=== PATIENT | male | born 1995 | race Caucasian/White ===

== ENCOUNTER 2023-05-25 23:42 | Emergency (ER) | payer OTHER, SELFPAY ==
--- NOTE | ~2023-05-25 | CT_ITS ---
CT Facial Bones and Cervical Spine Clinical Indication: Injury Technique: Contiguous axial scans were obtained through the facial bones and cervical spine followed by coronal and sagittal reconstructions. Dose reduction technique was used on this scan by utilizing automated exposure control and iterative reconstruction technique. The dose-length product (DLP) was 370.47 mGy-cm. Findings: CT facial bones: There are probable minimally displaced bilateral nasal bone fractures, possibly helper/driver magnus given relative lack of soft tissue swelling. The visualized paranasal sinuses are clear. Intraorb ital soft tissues appear normal. CT cervical spine: No fractures or subluxation. Unremarkable visualized bony structures. The interv ertebral disc spaces are preserved. No prevertebral soft tissue swelling. Suggestion of [address] anterior to the left sternocleidomastoid muscle. Impression: Minimally displaced bilateral nasal bone fractures, possibly chronic given lack of soft tissue swelli ng. No fracture or subluxation of the cervical spine. Suggestion of a 2 cm mass just anterior to the left sternocleidomastoid muscle, unclear whether this is solid or cystic. Consider follow-up CT scan of the neck to further evaluate. Reviewed, dictated and finalized at location . Impression: Minimally displaced bilateral nasal bone fractures, possibly chronic given lack of soft tissue swelling. No fracture or subluxation of the cervical spine. Suggestion of a 2 cm mass just anterior to the left sternocleidomastoid muscle, unclear whether this is solid or cystic. Consider follow-up CT scan of the nec k to further evaluate.
--- NOTE | ~2023-05-25 | CT_ITS ---
Non-contrast Head CT History: Head injury Technique: Axial non-contrast imaging of the brain was performed. Dose reduction technique was used on this scan by utilizing automated exposure control and iterative reconstruction technique. The dose -length product (DLP) was 681.00 mGy-cm. Findings: There is no evidence of intracranial hemorrhage, mass lesion, or acute infarct. Brain par enchyma appears normal. The ventricles and subarachnoid spaces are normal in size. The calvarium ap pears normal. The visualized paranasal sinuses and mastoid air cells are clear. Probable left nasal bone fracture, age-indeterminate. Impression: No intracranial abnormality seen. Probable left nasal bone fracture, age-indeterminate. Reviewed, dictated and finalized at [facility]. Impression: No intracranial abnormality seen. Probable left nasal bone fracture, age-indeterminate.
[2023-05-25 23:46] VITALS: BP 122/70; PULSE 114; RESP 21; TEMP 36.8; O2SAT 97
[2023-05-26] VITALS (13 sets, daily range): BP systolic 101–131; BP diastolic 72–90; PULSE 117–156; RESP 14–22; O2SAT 98
--- NOTE | 2023-05-26 00:35 | ECG_ITS ---
Measurements Intervals [place] Rate: 114 P: 85 IA: 139 QRS: 90 QRSD: 89 T: 89 QT: 311 QTc: 429 Interpretive Statements SINUS TACHYCARDIA VOLTAGE CRITERIA FOR LVH, POSSIBLY NORMAL FOR AGE BORDERLINE ECG ABNORMAL RHYTHM ECG NO PREVIOUS ECG AVAILABLE FOR COMPARISON Electronically Signed On 05-26-2023 12:04:26 CDT by Prieto Hsu M.D.
--- NOTE | 2023-05-26 00:48 | ED.GENADULT ---
HPI - General Adult General Chief complaint: Alcohol <Hitesh Arreola MD - Last Filed: 05/26/23 08:56> Stated complaint: AMS, +ETOH <Hitesh Arreola MD - Last Filed: 05/26/23 08:56> Time Seen by Provider: 05/26/23 00:29 <Hitesh Arreola MD - Last Filed: 05/26/23 08:56> History of Present Illness HPI narrative: Patient 28-year-old gentleman who presents the emergency department with chief complaint of alcohol intoxication. Patient reports he has prior history of alcohol abuse just recently went through rehab and reports that for the last 24 hours he has been on a binge of drinking. Patient was brought in by EMS the patient currently denies suicidal or homicidal ideation. <Hitesh Arreola MD - Last Filed: 05/26/23 08:56> Related Data Allergies/adverse reactions: Allergies Allergy/AdvReac Type Severity Reaction Status Date / Time No Known Allergies Allergy Verified 05/25/23 23:58 <Hitesh Arreola MD - Last Filed: 05/26/23 08:56> Review of Systems Review of Systems: A 10 system review of systems was completed on the patient and is negative except for what is stated in the HPI. Nursing and ancillary documentation was reviewed. <Hitesh Arreola MD - Last Filed: 05/26/23 08:56> Exam Narrative: GENERAL: Appears to be acutely intoxicated, well-nourished, and in no acute distress. HEAD: Normocephalic, atraumatic. EYES: PERRLA and EOMI. ENT: Nares clear, no rhinorrhea or epistaxis. Mucous membranes moist. NECK: Supple. CHEST: Clear to auscultation. No respiratory distress. HEART: Regular rate and rhythm. No murmur heard. Normal peripheral pulses. ABDOMEN: Soft, nontender, nondistended, normal active bowel sounds. EXTREMITIES: Normal range of motion. No edema. SKIN: Warm, dry, no rash. NEURO: No focal deficits. Alert and oriented x3. PSYCH: Normal mood and affect denies suicidal or homicidal ideation. <Hitesh Arreola MD - Last Filed: 05/26/23 08:56> Course Reevaluation(s) Reevaluation #1: PAtient is clinically sober. He is able to ambulate with steady gait. He is alert and oriented x .4 He is asking to be discharge. <Pratibha Moss MD - Last Filed: 05/26/23 17:45> Date: 05/26/23 <Pratibha Moss MD - Last Filed: 05/26/23 17:45> Time: 12:17 <Pratibha Moss MD - Last Filed: 05/26/23 17:45> Vital Signs Vital signs: Vital Signs Temperature 98.3 F 05/25/23 23:46 Pulse Rate 114 H 05/25/23 23:46 Respiratory Rate 21 H 05/25/23 23:46 Blood Pressure 122/70 05/25/23 23:46 Pulse Oximetry 97 05/25/23 23:46 Oxygen Delivery Room Air 05/25/23 23:46 Temperature 98.3 F 05/25/23 23:46 Pulse Rate 123 H 05/26/23 03:45 Respiratory Rate 21 H 05/26/23 03:45 Blood Pressure 101/72 05/26/23 10:30 Pulse Oximetry 98 05/26/23 01:46 Oxygen Delivery Room Air 05/25/23 23:46 <Hitesh Arreola MD - Last Filed: 05/26/23 08:56> Vital Signs Temperature 98.3 F 05/25/23 23:46 Pulse Rate 114 H 05/25/23 23:46 Respiratory Rate 21 H 05/25/23 23:46 Blood Pressure 122/70 05/25/23 23:46 Pulse Oximetry 97 05/25/23 23:46 Oxygen Delivery Room Air 05/25/23 23:46 Temperature 98.3 F 05/25/23 23:46 Pulse Rate 123 H 05/26/23 03:45 Respiratory Rate 21 H 05/26/23 03:45 Blood Pressure 101/72 05/26/23 10:30 Pulse Oximetry 98 05/26/23 01:46 Oxygen Delivery Room Air 05/25/23 23:46 <Pratibha Moss MD - Last Filed: 05/26/23 17:45> Procedures Laceration Laceration 1: Date: 05/26/23 <Hitesh Arreola MD - Last Filed: 05/26/23 08:56> Time: 08:54 <Hitesh Arreola MD - Last Filed: 05/26/23 08:56> Site: face (Right eyebrow) <Hitesh Arreola MD - Last Filed: 05/26/23 08:56> Side (If applicable): right <Hitesh Arreola MD - Last Filed: 05/26/23 08
[2023-05-26] MEDS: SODIUM CHLORIDE 0.9% IV 1,000 ML 999 ML IV CONT (00:56)
[2023-05-26] MEDS: ONDANSETRON INJ 4 MG/2 ML VIAL IV PUSH (00:56)
[2023-05-26 01:11] LABS: Basophils Absolute Auto 0.1 K/mm3 (0.0-0.1); Basophils Percent Auto 1.2 % (0.2-1.2); Eosinophils Percent Auto 0.4 % (0-4.4); Hematocrit 42.2 % (42.0-52.0); Hemoglobin 14.5 g/dL (14.0-18.0); Immature Granulocyte Absolute 0.01 K/mm3 (0.00-0.031); Immature Granulocyte Percent A 0.1 % (0-0.5); Lymphocytes Absolute Auto 1.95 K/mm3 (0.9-3.2); Lymphocytes Percent Auto 26.2 % (18.3-44.2); Mean Corpuscular HGB Conc 34.4 g/dl (32-36); Mean Corpuscular Hemoglobin 30.9 pg (26-34); Mean Corpuscular Volume 89.8 fl (80-100); Mean Platelet Volume 9.4 fl (7.4-10.4); Monocytes Absolute Auto 0.6 K/mm3 (0.1-0.6); Monocytes Percent Auto 7.9 % (2.6-8.5); Neutrophils Absolute Auto 4.8 K/mm3 (1.3-6.7); Neutrophils Percent Auto 64.2 % (45.5-73.1); Platelet Count Result 240 k/mm3 (150-375); Red Cell Distribution Width 13.1 % (11.5-14.5); White Blood Count 7.4 K/mm3 (4.5-10.0)
[2023-05-26 01:31] LABS: Acetaminophen < 10 ug/mL (10-30); Alanine Aminotransferase 51 U/L (6-50); Albumin Level 4.6 g/dL (3.5-5.1); Alkaline Phosphatase 69 U/L (38-126); Anion Gap 15 mmol/L (8-16); Aspartate Amino Transferase 79 U/L (17-59); Bilirubin,Total 0.4 mg/dL (0.2-1.3); Blood Urea Nitrogen 13 mg/dL (9-20); Calcium 8.8 mg/dL (8.4-10.2); Carbon Dioxide 31 mmol/L (22-30); Chloride 100 mmol/L (98-107); Estimated CRCL calculation 94 ml/min; Estimated Glomerular Filt Rate > 60; Glucose 116 mg/dL (65-110); Potassium 3.6 mmol/L (3.4-5.0); Salicylate < 1.0 mg/dL (2-20); Sodium 146 mmol/L (137-145)
--- NOTE | 2023-05-26 01:39 | PC.NURSE ---
This RN walked into pts room. Pt resting on stretcher alert to verbal stimuli with new laceration to R eyebrow. Bed alarm intact. Blood noted on floor. LAVELLE Arreola notified.
[2023-05-26 01:58] LABS: Ethanol 471 mg/dL (<10)
[2023-05-26 02:01] LABS: Thyroid Stimulating Hormone 0.814 uIU/mL (0.465-4.680)
[2023-05-26] MEDS: THIAMINE 500 MG/NS 100 ML 500 MG/100 ML BAG 200 MG IVPB (02:03)
--- NOTE | 2023-05-26 02:26 | PC.NURSE ---
Pt moved to room 7, report given to Caren CAMPBELL.
--- NOTE | 2023-05-26 02:29 | PC.NURSE ---
This RN assumed care of patient. This RN took patient report from SHANNAN Sevilla.
[2023-05-26 02:43] LABS: Appearance Urine Clear (Clear); Bilirubin Urine Negative (Negative); Blood Urine Negative (Negative); Color Urine Yellow (Yellow); Glucose Urine UA Negative (Negative); Ketones Urine Negative (Negative); Leukocyte Esterase Ur Negative LEU/UL (Negative); Nitrate Urine Negative (Negative); Protein Urine Negative (Negative); Specific Grav Ur 1.009 (1.001-1.035); Urobilinogen Urine 0.2 mg/dL (<2.0); pH Urine 6.5 (5.0-9.0)
[2023-05-26 02:53] LABS: Add Urine Microscopic? NO
[2023-05-26] MEDS: LORazepam INJ (*CRX) 2 MG/ML VIAL IM (03:00)
[2023-05-26] MEDS: HALOPERIDOL LACTATE 5 MG/ML VIAL IM (03:00)
[2023-05-26 03:01] LABS: Barbiturate Screen Urine Negative (Negative); Benzodiazepines Screen Urine Negative (Negative)
[2023-05-26 03:09] LABS: Amphetamine Screen Urine Negative (Negative); Cannabinoid Screen Urine Positive (Negative); Cocaine Screen Urine Negative (Negative); Methadone Screen Urine Negative (Negative); Opiate Screen Urine Negative (Negative); Phencyclidine Screen Urine Negative (Negative)
--- NOTE | 2023-05-26 04:39 | PC.NURSE ---
Pt arrived back from CT scan. Pt began to rip off vital sign monitor and ripped out his IV. This RN along with multiple others encourage patient to back into bed. This RN initiated new IV access, 18 guage in the left forearm and reapplied vital machine leads to patient. Pt was explained the importance of staying in bed by this RN and other staff members. This Rn along with multiple other staff members, security, charge nurse, and EDP Dr. Arreola tried to encourage patient to stay in bed. Pt refused to listen and got out of bed several times stating he needs to drink water and he cant lay down . This RN reminded patient that he was not able to get out of bed due to high ETOH levels. After multiple failed attempts to keep patient in bed, pt then ran to the sink and began drinking water. THis RN along with several others got pt back into bed. EDP Dr. Arreola approved pt to drink water. This RN gave patient water. Pt then began to stay in bed.
--- NOTE | 2023-05-26 08:41 | PC.NURSE ---
Pt found standing up in the room urinating on the floor
--- NOTE | 2023-05-26 11:46 | PC.NURSE ---
Pt stated he needs to leave to go to a job interview at 1400. Pt was told he was unable to leave due to alcohol intoxication and not having a ride. Pt stated he would get an Uber home. MD aware and no new orders at this time.
== END 2023-05-26 12:37 | disposition home or self-care (01) ==
PROVIDERS: Emergency Provider Emergency Medicine
DX: S02.2XXA Fracture of nasal bones, initial encounter for closed fracture (principal); S01.111A Laceration without foreign body of right eyelid and periocular area, initial encounter; F10.120 Alcohol abuse with intoxication, uncomplicated; Y90.8 Blood alcohol level of 240 mg/100 ml or more; X58.XXXA Exposure to other specified factors, initial encounter
CPT/HCPCS: 12013; 36415; 70450; 70486; 72125; 80053; 80307; 81003; 84443; 85025; 93005; 96361; 96365; 96372; 96375; 99284; J1630; J2060; J2405; J3411; J7030

== ENCOUNTER 2023-05-29 05:23 | Emergency (ER) | payer OTHER, SELFPAY ==
[2023-05-29 05:29] VITALS: BP 125/95; PULSE 77; RESP 16; TEMP 36.6; O2SAT 100
--- NOTE | 2023-05-29 05:33 | ECG_ITS ---
Measurements Intervals [place] Rate: 91 P: 81 MA: 138 QRS: 87 QRSD: 98 T: 84 QT: 344 QTc: 425 Interpretive Statements SINUS RHYTHM BORDERLINE R WAVE PROGRESSION, ANTERIOR LEADS MINIMAL Q WAVES- INFERIOR LEADS BORDERLINE ECG COMPARED TO ECG 05/26/2023 00:47:11 SINUS RHYTHM NOW PRESENT Electronically Signed On 05-29-2023 6:53:51 CDT by Terence Stephens D.O.
--- NOTE | 2023-05-29 05:47 | ED.GENADULT ---
HPI - General Adult General Chief complaint: Alcohol Stated complaint: alcohol withdrawal Time Seen by Provider: 05/29/23 05:30 History of Present Illness HPI narrative: Patient 28-year-old gentleman who presents the emergency department with chief complaint of alcohol abuse. Patient reports he has history of alcoholism and reports that he has been heavily drinking the patient has been seen in the emergency department for alcohol intoxication has had a head injury recently and required laceration repair of his face. The patient states that today he has decided that he wants to stop drinking the patient reports that his last drink was around 10 PM last night and the patient states that he is afraid that he is going through alcohol withdrawal. Related Data Allergies Allergy/AdvReac Type Severity Reaction Status Date / Time No Known Allergies Allergy Verified 05/25/23 23:58 Review of Systems Review of Systems: A 10 system review of systems was completed on the patient and is negative except for what is stated in the HPI. Nursing and ancillary documentation was reviewed. Exam Narrative: GENERAL: Well-appearing, well-nourished, and in no acute distress. HEAD: Normocephalic, atraumatic. There is a healing laceration to the right eyebrow EYES: PERRLA and EOMI. ENT: Nares clear, no rhinorrhea or epistaxis. Mucous membranes moist. NECK: Supple. CHEST: Clear to auscultation. No respiratory distress. HEART: Regular rate and rhythm. No murmur heard. Normal peripheral pulses. ABDOMEN: Soft, nontender, nondistended, normal active bowel sounds. EXTREMITIES: Normal range of motion. No edema. SKIN: Warm, dry, no rash. NEURO: No focal deficits. Alert and oriented x3. Patient is not tremulous PSYCH: Normal mood and affect. Course Vital Signs Vital signs: Vital Signs Temperature 36.6 C 05/29/23 05:29 Pulse Rate 77 05/29/23 05:29 Respiratory Rate 16 05/29/23 05:29 Blood Pressure 125/95 H 05/29/23 05:29 Pulse Oximetry 100 05/29/23 05:29 Temperature 36.6 C 05/29/23 05:29 Pulse Rate 77 05/29/23 05:29 Respiratory Rate 16 05/29/23 05:29 Blood Pressure 125/95 H 05/29/23 05:29 Pulse Oximetry 100 05/29/23 05:29 Medical Decision Making [facility] Narrative Medical decision making narrative: Differential diagnosis includes alcohol intoxication, alcohol withdrawal Laboratory studies were obtained on the patient which showed normal CBC electrolytes were within normal limits liver enzymes were slightly elevated with an AST of 83 ALT of 53 bilirubin 0.7 urinalysis showed no evidence of UTI blood alcohol level was 387 Patient reports that he is feeling very anxious the patient was given a dose of hydroxyzine Patient will be monitored in the emergency department until he is clinically sober and at that point will be discharged to follow-up as an outpatient for alcohol treatment. Vital Signs Vital Signs: Vital Signs Temperature 36.6 C 05/29/23 05:29 Pulse Rate 77 05/29/23 05:29 Respiratory Rate 16 05/29/23 05:29 Blood Pressure 125/95 H 05/29/23 05:29 Pulse Oximetry 100 05/29/23 05:29 Temperature 36.6 C 05/29/23 05:29 Pulse Rate 77 05/29/23 05:29 Respiratory Rate 16 05/29/23 05:29 Blood Pressure 125/95 H 05/29/23 05:29 Pulse Oximetry 100 05/29/23 05:29 Lab Data 05/29/23 06:05 05/29/23 06:05 Labs: Lab Results 05/29/23 05/29/23 Range/Units 06:05 06:14 WBC 6.8 (4.5-10.0) K/mm3 RBC 4.73 (4.6-6.20) M/mm3 Hgb 14.4 (14.0-18.0) g/dL Hct 42.5 (42.0-52.0) % MCV 89.9 (80-100) fl MCH 30.4 (26-34) pg MCHC 33.9 (32-36) g/dl RDW 13.2 (11.5-14.5) % Plt Count 194 (150-375) k/mm3 MPV 9.7 (7.4-10.4) fl Immature Gran % (Auto) 0.3 (0-0.5) % Neut % (Auto) 60.5 (45.5-73.1) % Lymph % (Auto) 32.4 (18.3-44.2) % [place] % (Auto) 4.9 (2.6-8.5) % Eos % (Auto) 0.3 (0-4.4) % Baso %
[2023-05-29] MEDS: SODIUM CHLORIDE 0.9% IV 1,000 ML 999 ML IV CONT ×2 (06:02→06:37)
[2023-05-29] MEDS: THIAMINE 500 MG/NS 100 ML 500 MG/100 ML BAG 200 MG IVPB (06:02)
[2023-05-29 06:10] LABS: Basophils Absolute Auto 0.1 K/mm3 (0.0-0.1); Basophils Percent Auto 1.6 % (0.2-1.2); Eosinophils Percent Auto 0.3 % (0-4.4); Hematocrit 42.5 % (42.0-52.0); Hemoglobin 14.4 g/dL (14.0-18.0); Immature Granulocyte Absolute 0.02 K/mm3 (0.00-0.031); Immature Granulocyte Percent A 0.3 % (0-0.5); Lymphocytes Absolute Auto 2.19 K/mm3 (0.9-3.2); Lymphocytes Percent Auto 32.4 % (18.3-44.2); Mean Corpuscular HGB Conc 33.9 g/dl (32-36); Mean Corpuscular Hemoglobin 30.4 pg (26-34); Mean Corpuscular Volume 89.9 fl (80-100); Mean Platelet Volume 9.7 fl (7.4-10.4); Monocytes Absolute Auto 0.3 K/mm3 (0.1-0.6); Monocytes Percent Auto 4.9 % (2.6-8.5); Neutrophils Absolute Auto 4.1 K/mm3 (1.3-6.7); Neutrophils Percent Auto 60.5 % (45.5-73.1); Platelet Count Result 194 k/mm3 (150-375); Red Blood Count 4.73 M/mm3 (4.6-6.20); Red Cell Distribution Width 13.2 % (11.5-14.5); White Blood Count 6.8 K/mm3 (4.5-10.0)
[2023-05-29 06:21] LABS: Alanine Aminotransferase 53 U/L (6-50); Albumin Level 4.7 g/dL (3.5-5.1); Alkaline Phosphatase 76 U/L (38-126); Anion Gap 13 mmol/L (8-16); Aspartate Amino Transferase 83 U/L (17-59); Bilirubin,Total 0.7 mg/dL (0.2-1.3); Blood Urea Nitrogen 11 mg/dL (9-20); Calcium 8.6 mg/dL (8.4-10.2); Carbon Dioxide 29 mmol/L (22-30); Chloride 97 mmol/L (98-107); Estimated CRCL calculation 98 ml/min; Estimated Glomerular Filt Rate > 60; Glucose 97 mg/dL (65-110); Magnesium 2.2 mg/dL (1.6-2.3); Potassium 3.8 mmol/L (3.4-5.0); Sodium 139 mmol/L (137-145)
[2023-05-29 06:23] LABS: Appearance Urine Clear (Clear); Bilirubin Urine Negative (Negative); Blood Urine Negative (Negative); Color Urine Yellow (Yellow); Glucose Urine UA Negative (Negative); Ketones Urine Negative (Negative); Leukocyte Esterase Ur Negative LEU/UL (Negative); Nitrate Urine Negative (Negative); Protein Urine Negative (Negative); Specific Grav Ur 1.005 (1.001-1.035); Urobilinogen Urine 0.2 mg/dL (<2.0); pH Urine 7.5 (5.0-9.0)
[2023-05-29 06:33] LABS: Add Urine Microscopic? NO
[2023-05-29 06:37] LABS: Ethanol 387 mg/dL (<10)
[2023-05-29] MEDS: hydrOXYzine HCL 25 MG TABLET PO (06:39)
[2023-05-29 06:44] LABS: Amphetamine Screen Urine Negative (Negative); Barbiturate Screen Urine Negative (Negative); Benzodiazepines Screen Urine Negative (Negative); Cannabinoid Screen Urine Negative (Negative); Cocaine Screen Urine Negative (Negative); Methadone Screen Urine Negative (Negative); Opiate Screen Urine Negative (Negative); Phencyclidine Screen Urine Negative (Negative)
== END 2023-05-29 06:50 | disposition home or self-care (01) ==
PROVIDERS: Emergency Provider Emergency Medicine
DX: F10.229 Alcohol dependence with intoxication, unspecified (principal); Y90.8 Blood alcohol level of 240 mg/100 ml or more; R94.31 Abnormal electrocardiogram [ECG] [EKG]
CPT/HCPCS: 36415; 80053; 80307; 81003; 83735; 85025; 93005; 96365; 99284; A9270; J3411; J7030

== ENCOUNTER 2023-05-30 01:52 | Emergency (ER) | payer OTHER, SELFPAY ==
[2023-05-30 01:56] VITALS: BP 152/80; PULSE 88; RESP 14; TEMP 36.6; O2SAT 100
--- NOTE | 2023-05-30 03:57 | ED.GENADULT ---
HPI - General Adult General Chief complaint: Unspecified Stated complaint: stitches removal Time Seen by Provider: 05/30/23 02:56 History of Present Illness HPI narrative: This is a 28-year-old alcoholic presenting ED for questions about his sutures. Sutures were placed on 05/26. Patient was post the have his sutures removed in the next 2-3 days. The patient decided the remove them himself at home using scissors. He then became concerned because he was worried some of the sutures may still be imbedded. He called an ambulance and was brought to emergency room. Patient is a daily drinker but has not drinking today. No signs of withdrawal at this time. Related Data Allergies Allergy/AdvReac Type Severity Reaction Status Date / Time No Known Allergies Allergy Verified 05/25/23 23:58 [facility] Past Medical History Medical History ETOHism Exam Narrative: APPEARANCE: No apparent distress. No tremors Head: atraumatic. EYES: EOMI, NOSE: Atraumatic NECK: Trachea midline RESPIRATORY: No increased rate of breathing CARDIOVASCULAR: RRR, ABDOMINAL: Non-distended MUSCULOSKELETAl: No obvious deformities NEURO: Alert. Moving 4/4 extremities SKIN:: non gaping some a healed laceration over the right eyebrow. Several small suture tails sticking out the suture sites. PSYCHIATRIC: Normal affect Course Vital Signs Vital signs: Vital Signs Temperature 97.9 F 05/30/23 01:56 Pulse Rate 88 05/30/23 01:56 Respiratory Rate 14 05/30/23 01:56 Blood Pressure 152/80 H 05/30/23 01:56 Pulse Oximetry 100 05/30/23 01:56 Oxygen Delivery Room Air 05/30/23 01:56 Temperature 97.9 F 05/30/23 01:56 Pulse Rate 88 05/30/23 01:56 Respiratory Rate 14 05/30/23 01:56 Blood Pressure 152/80 H 05/30/23 01:56 Pulse Oximetry 100 05/30/23 01:56 Oxygen Delivery Room Air 05/30/23 01:56 Medical Decision Making [facility] Narrative Medical decision making narrative: -Course: 28-year-old presenting to the ED after taking his sutures out early. The wound itself is partially healed but not gaping. The remaining suture tails were removed using tweezers. Patient will be discharged. No evidence of withdrawal at this time. -DDX includes but is not limited to: Retained sutures -Co-morbidities complicating care: alcoholism -Shared decision making / Disposition: discharged Vital Signs Vital Signs: Vital Signs Temperature 97.9 F 05/30/23 01:56 Pulse Rate 88 05/30/23 01:56 Respiratory Rate 14 05/30/23 01:56 Blood Pressure 152/80 H 05/30/23 01:56 Pulse Oximetry 100 05/30/23 01:56 Oxygen Delivery Room Air 05/30/23 01:56 Temperature 97.9 F 05/30/23 01:56 Pulse Rate 88 05/30/23 01:56 Respiratory Rate 14 05/30/23 01:56 Blood Pressure 152/80 H 05/30/23 01:56 Pulse Oximetry 100 05/30/23 01:56 Oxygen Delivery Room Air 05/30/23 01:56 Discharge Plan Discharge Clinical Impression: Encounter for evaluation of wound Patient Disposition: Home, Self-Care Condition: Stable Instructions: Antibiotic Form, Care For Your Stitches (DC) Additional Instructions: Return if the wound becomes red, inflamed, painful or has purulent discharge. Follow-up/Referrals: UNKNOWN,DOCTOR [Primary Care Provider] -
[2023-05-30 04:14] VITALS: BP 139/86; PULSE 86; RESP 16; O2SAT 100
== END 2023-05-30 04:16 | disposition home or self-care (01) ==
PROVIDERS: Emergency Provider Emergency Medicine
DX: S01.111D Laceration without foreign body of right eyelid and periocular area, subsequent encounter (principal); X58.XXXD Exposure to other specified factors, subsequent encounter
CPT/HCPCS: 15853; 99281

== ENCOUNTER 2023-09-26 17:10 | Inpatient (IN) | payer OTHER, SELFPAY ==
[2023-09-26 17:10] VITALS: BP 126/84; PULSE 120; RESP 16; TEMP 37.2; O2SAT 98
--- NOTE | 2023-09-26 18:10 | ED.ALCOHOL ---
HPI - Alcohol General Chief Complaint: Alcohol Stated Complaint: ETOH Time Seen by Provider: 09/26/23 17:15 History of Present Illness HPI narrative: Patient is a 28-year-old male presenting with alcohol withdrawal. States that he has been drinking about a 5th of liquor per day for many months. States that when he stops drinking he starts to feel anxious so he usually goes advised more alcohol. States that he is tired of hurting his family and so he is looking for help. Currently complains of severe anxiety. Denies pain. No seizures. Related Data Home Medications Medication Instructions Recorded Confirmed No Home Medications 09/26/23 09/26/23 Allergies Allergy/AdvReac Type Severity Reaction Status Date / Time No Known Allergies Allergy Verified 09/26/23 17:17 Review of Systems Review of Systems: All systems reviewed & are unremarkable except as noted in HPI and below PMFSH Past Medical History Medical History ETOHism Family History Family History (Updated 09/26/23 @ 23:10 by Reena Astorga RN) Other No significant family history Social History Social History Smoking packs per day: 1 Smoking cigarettes per day: 20.0 Years smoked: 5 Smoking pack-years: 5.00 Smoking status: Heavy tobacco smoker Tobacco type: cigarettes Alcohol intake: current Substance use: former Other substance usage details: Fifth of vodka daily Last use: 09/25/23 Do You Feel Safe in your Home?: Yes Lack of Transportation: No Lack of Food: Never True Current Housing: I Have Housing Concerned About Future Housing: No Difficulty Paying Gas/Electric Bills: No Difficulty Paying for Meds: No Currently Unemployed: YES Education: High School Diploma/GED Difficulty w/ Childcare or Family Care: No Spiritual care concerns: No Exam Narrative: GENERAL: Anxious appearing, intermittently tearful, pleasant cooperative HEAD: Normocephalic, atraumatic. EYES: PERRLA and EOMI. ENT: Mucous membranes moist. no tongue fasciculations NECK: Supple. CHEST: Clear to auscultation. No respiratory distress. HEART: tachycardic, regular rhythm ABDOMEN: Soft, nontender, nondistended EXTREMITIES: Normal range of motion. mild tremulousness SKIN: Warm, dry, no rash. NEURO: No focal deficits. Alert and oriented x3. PSYCH: Normal mood and affect. Course Vital Signs Vital signs: Vital Signs Temperature 99.0 F 09/26/23 17:10 Pulse Rate 120 H 09/26/23 17:10 Respiratory Rate 16 09/26/23 17:10 Blood Pressure 126/84 09/26/23 17:10 Pulse Oximetry 98 09/26/23 17:10 Oxygen Delivery Room Air 09/26/23 17:10 Temperature 97.8 F 09/27/23 08:00 Pulse Rate 80 09/27/23 08:00 Respiratory Rate 18 09/27/23 08:00 Blood Pressure 137/83 09/27/23 08:00 Pulse Oximetry 100 09/27/23 08:00 Oxygen Delivery Room Air 09/27/23 08:00 MDM - Alcohol MDM Narrative Medical decision making narrative: 28-year-old male presenting for alcohol detox. Tachycardic on arrival, his vitals are within normal limits. Exam remarkable for the above. CIWA 6. Ativan and Librium have been ordered. Blood work with hypokalemia. ethanol was 260. Patient has received several L of fluids and multiple doses of Ativan. His heart rate remains in the 140s. Feel he would benefit from admission for observation, IV fluids, monitoring for withdrawal. He is agreeable with this plan. I spoke with the hospitalist has accepted him for admission. Differential Diagnosis Differential diagnosis: Likely hypomagnesemia, alcohol intoxication, alcohol ketoacidosis and alcohol withdrawal syndrome Medical Records Attestation: I reviewed the patient's medical records. Lab Data Attestation: I reviewed the patient's lab results. 09/27/23 03:48 09/27/23 03:48 Labs: Lab
[2023-09-26 18:36] LABS: Basophils Absolute Auto 0.1 K/mm3 (0.0-0.1); Basophils Percent Auto 0.8 % (0.2-1.2); Eosinophils Percent Auto 0.1 % (0-4.4); Hematocrit 47.5 % (42.0-52.0); Hemoglobin 16.2 g/dL (14.0-18.0); Immature Granulocyte Absolute 0.05 K/mm3 (0.00-0.031); Immature Granulocyte Percent A 0.4 % (0-0.5); Lymphocytes Absolute Auto 1.92 K/mm3 (0.9-3.2); Lymphocytes Percent Auto 16.2 % (18.3-44.2); Mean Corpuscular HGB Conc 34.1 g/dl (32-36); Mean Platelet Volume 9.1 fl (7.4-10.4); Monocytes Absolute Auto 0.5 K/mm3 (0.1-0.6); Monocytes Percent Auto 4.3 % (2.6-8.5); Neutrophils Absolute Auto 9.3 K/mm3 (1.3-6.7); Neutrophils Percent Auto 78.2 % (45.5-73.1); Platelet Count Result 270 k/mm3 (150-375); Red Blood Count 5.22 M/mm3 (4.6-6.20); Red Cell Distribution Width 12.3 % (11.5-14.5); White Blood Count 11.8 K/mm3 (4.5-10.0)
[2023-09-26] MEDS: SODIUM CHLORIDE 0.9% IV 1,000 ML 999 ML IV CONT ×2 (18:43→19:34)
[2023-09-26] MEDS: chlordiazePOXIDE (*CRX) 25 MG CAPSULE 50 MG PO (18:44)
[2023-09-26] MEDS: FOLIC ACID 1 MG/0.2 ML INJ IV PUSH (18:44)
[2023-09-26] MEDS: LORazepam INJ (*CRX) 2 MG/ML VIAL IV PUSH ×2 (18:44→21:01)
[2023-09-26 18:47] VITALS: BP 120/84; PULSE 106; RESP 16; O2SAT 100
[2023-09-26 18:54] LABS: Alanine Aminotransferase 34 U/L (6-50); Albumin Level 5.1 g/dL (3.5-5.1); Alkaline Phosphatase 66 U/L (38-126); Anion Gap 14 mmol/L (8-16); Aspartate Amino Transferase 44 U/L (17-59); Bilirubin,Total 0.4 mg/dL (0.2-1.3); Blood Urea Nitrogen 12 mg/dL (9-20); Calcium 9.4 mg/dL (8.4-10.2); Carbon Dioxide 35 mmol/L (22-30); Chloride 93 mmol/L (98-107); Estimated CRCL calculation 102 ml/min; Estimated Glomerular Filt Rate > 60; Glucose 119 mg/dL (65-110); Lipase 418 U/L (23-300); Potassium 3.5 mmol/L (3.4-5.0); Sodium 142 mmol/L (137-145)
[2023-09-26 18:55] LABS: Ethanol 260 mg/dL (<10)
--- NOTE | 2023-09-26 19:08 | PCCCNOTE ---
CC received referral for alcohol resources for patient. CC met with patient bedside, patient is alert and oriented at this time. CC gave patient substance abuse resources and left a referral for [facility] with [facility]. Patient also given [facility]'s business card to reach out to him as well. CC will continue to follow for any needs that may arise.
[2023-09-26 20:17] LABS: Appearance Urine Clear (Clear); Bacteria Urine None Seen /hpf; Bilirubin Urine Negative (Negative); Blood Urine Negative (Negative); Color Urine Yellow (Yellow); Glucose Urine UA Negative (Negative); Ketones Urine Trace mg/dL (Negative); Leukocyte Esterase Ur Negative LEU/UL (Negative); Nitrate Urine Negative (Negative); Non Pathogenic Casts 0-2; Protein Urine Trace mg/dL (Negative); RBC Urine 0-2 /hpf (0-2); Specific Grav Ur 1.019 (1.001-1.035); Squamous Epithelial Cell Urine None seen /hpf (Few); WBC Urine 0-5 /hpf
[2023-09-26 20:21] LABS: Add Urine Microscopic? YES
[2023-09-26 20:31] LABS: Amphetamine Screen Urine Negative (Negative); Barbiturate Screen Urine Negative (Negative); Benzodiazepines Screen Urine Negative (Negative); Cannabinoid Screen Urine Negative (Negative); Cocaine Screen Urine Negative (Negative); Methadone Screen Urine Negative (Negative); Opiate Screen Urine Negative (Negative); Phencyclidine Screen Urine Negative (Negative)
[2023-09-26 20:57] VITALS: PULSE 126; RESP 16; O2SAT 100
[2023-09-26] MEDS: THIAMINE 500 MG/NS 100 ML 500 MG/100 ML BAG 200 MG IVPB (22:06)
[2023-09-26] MEDS: MAGNESIUM SULF 2 GM/WATER 50ML 2 GM/50 ML BAG IVPB (22:06)
--- NOTE | 2023-09-26 22:25 | PM.IMHP ---
H&P: HPI History of Present Illness Date/Time: 09/26/23 22:25 Chief Complaint: anxiety Narrative: 28M w/ PMH alcohol abuse. He drinks about a 5th of liquor per day for many months. His last drink was the night prior to admission. He laid around hoping to feel better as he wants to quit but became increasingly anxious. He denies other symptoms other than being hungry, requesting sandwich and chips. ED course revealed ETOH level of 260 which is lower than previous (471). He received librium 50mg, ativan 2mg IV x2, folici acid, thiamine, and 2L normal saline bolus. Afterwards, he reports feeling better, only slightly anxious. His HR remains high in 130's. Sinus tachycardia. EKG pending. Review of Systems Review of Systems: All systems reviewed & are unremarkable except as noted in HPI and below (HPI) [facility] Past Medical History Medical History ETOHism Meds Home Medications and Allergies Allergies Allergy/AdvReac Type Severity Reaction Status Date / Time No Known Allergies Allergy Verified 09/26/23 17:17 Vital Signs Vital Signs - 24 hr 09/26/23 17:10 09/26/23 18:47 09/26/23 20:57 Temperature 99.0 F Pulse Rate 120 H 106 H 126 H Respiratory Rate 16 16 16 Blood Pressure 126/84 120/84 Pulse Oximetry 98 100 100 Oxygen Delivery Room Air Exam Const: General: comfortable and no acute distress Eyes: Pupils: Equal, round and reactive pupils present Neck: Neck: supple Resp: Effort & Inspection: normal respiratory effort Auscultation: clear to auscultation bilaterally, no crackles, no rales and no rhonchi Cardio: Rate: tachycardic Rhythm: regular rhythm Heart sounds: no gallops, no murmurs and no rubs GI: GI Palp: Yes Soft to palpation and No Tenderness to palpation present (GI) Neuro: Speech: normal speech Motor exam (neuro): 5/5 motor strength present throughout Extrem: General: no edema H&P: Results Labs Labs: Short CBC 09/26/23 Range/Units 18:24 WBC 11.8 H (4.5-10.0) K/mm3 Hgb 16.2 (14.0-18.0) g/dL Hct 47.5 (42.0-52.0) % Plt Count 270 (150-375) k/mm3 BMP 09/26/23 18:24 Sodium 142 Potassium 3.5 Chloride 93 L Carbon Dioxide 35 H BUN 12 Creatinine 0.90 Glucose 119 H Calcium 9.4 Liver Function 09/26/23 Range/Units 18:24 Total Bilirubin 0.4 (0.2-1.3) mg/dL AST 44 (17-59) U/L ALT 34 (6-50) U/L Alkaline Phosphatase 66 (38-126) U/L Albumin 5.1 (3.5-5.1) g/dL Urine 09/26/23 Range/Units 20:04 Urine Color Yellow (Yellow) Urine Appearance Clear (Clear) Urine pH 8.0 (5.0-9.0) Ur Specific [place] 1.019 (1.001-1.035) Urine Protein Trace (Negative) mg/dL Urine Glucose (UA) Negative (Negative) mg/dL Assessment and Plan Assessment and plan (1) ETOHism: Code(s): F10.20 - Alcohol dependence, uncomplicated Status: Acute (2) Alcohol withdrawal: Code(s): F10.939 - Alcohol use, unspecified with withdrawal, unspecified Status: Acute (3) Sinus tachycardia: Code(s): R00.0 - Tachycardia, unspecified Status: Acute Plan 28M w/ PMH alcohol abuse and tobacco abuse. He drinks about a 5th of liquor per day for many months. His last drink was the night prior to admission. He laid around hoping to feel better as he wants to quit but became increasingly anxious. He denies other symptoms other than being hungry, requesting sandwich and chips. ED course revealed ETOH level of 260 which is lower than previous (471). He received Librium 50mg, Ativan 2mg IV x2, folic acid, thiamine, and 2L normal saline bolus. Afterwards, he reports feeling better, only slightly anxious. His HR remains high in 130's. Sinus tachycardia. EKG pending. Admitted on 09/26/23 He is being admitted to IMU w/ tele for alcohol withdrawal and persistent sinus tachycardia. EKG is pending. CIWA initiated with scheduled Librium and banana bag daily. He has
--- NOTE | 2023-09-26 22:46 | ADMGEN ---
This patient, Rodrigo Cage, was admitted to IMU Room 203-01. Patient/family oriented to hospital policies and general routines including ID bracelet, bed and alarms, visiting hours, pain management, procedures, bathroom and other care routines, personal items, smoking policy, room service/diet, and visiting hours. Information on how to activate the Rapid Response Team has been discussed. Patient/Family are encouraged to report perceived risks to care and to ask questions if they do not understand what they are told or what they should do.
[2023-09-26 23:14] VITALS: PULSE 132
[2023-09-26 23:53] VITALS: BP 129/69; PULSE 134; RESP 18; TEMP 36.6; O2SAT 99
[2023-09-26 23:59] LABS: Glucose Point of Care 153 mg/dl (65-105)
[2023-09-27] VITALS: PULSE 128; PULSE 132; O2SAT 99
[2023-09-27 02:00] VITALS: PULSE 123
[2023-09-27 04:00] VITALS: PULSE 94; O2SAT 98
[2023-09-27 04:09] VITALS: BP 112/69; PULSE 101; RESP 19; TEMP 36.4; O2SAT 98
[2023-09-27 04:53] LABS: Basophils Absolute Auto 0.1 K/mm3 (0.0-0.1); Basophils Percent Auto 0.9 % (0.2-1.2); Eosinophils Absolute Auto 0.1 K/mm3 (0-0.3); Eosinophils Percent Auto 1.2 % (0-4.4); Hematocrit 37.5 % (42.0-52.0); Hemoglobin 12.7 g/dL (14.0-18.0); Immature Granulocyte Absolute 0.03 K/mm3 (0.00-0.031); Immature Granulocyte Percent A 0.3 % (0-0.5); Lymphocytes Absolute Auto 2.65 K/mm3 (0.9-3.2); Lymphocytes Percent Auto 26.9 % (18.3-44.2); Mean Corpuscular HGB Conc 33.9 g/dl (32-36); Mean Corpuscular Hemoglobin 31.1 pg (26-34); Mean Corpuscular Volume 91.9 fl (80-100); Mean Platelet Volume 9.6 fl (7.4-10.4); Monocytes Percent Auto 10.1 % (2.6-8.5); Neutrophils Percent Auto 60.6 % (45.5-73.1); Platelet Count Result 191 k/mm3 (150-375); Red Blood Count 4.08 M/mm3 (4.6-6.20); Red Cell Distribution Width 12.2 % (11.5-14.5); White Blood Count 9.9 K/mm3 (4.5-10.0)
[2023-09-27 05:17] LABS: Alanine Aminotransferase 25 U/L (6-50); Albumin Level 3.7 g/dL (3.5-5.1); Alkaline Phosphatase 51 U/L (38-126); Anion Gap 7 mmol/L (8-16); Aspartate Amino Transferase 30 U/L (17-59); Bilirubin,Total 0.5 mg/dL (0.2-1.3); Blood Urea Nitrogen 16 mg/dL (9-20); Calcium 8.4 mg/dL (8.4-10.2); Carbon Dioxide 35 mmol/L (22-30); Chloride 97 mmol/L (98-107); Estimated CRCL calculation 118 ml/min; Estimated Glomerular Filt Rate > 60; Glucose 92 mg/dL (65-110); Magnesium 2.5 mg/dL (1.6-2.3); Sodium 139 mmol/L (137-145)
[2023-09-27 05:59] LABS: Glucose Point of Care 125 mg/dl (65-105)
[2023-09-27 06:00] VITALS: PULSE 95
[2023-09-27] MEDS: chlordiazePOXIDE (*CRX) 25 MG CAPSULE PO ×2 (06:17)
[2023-09-27 08:00] VITALS: BP 137/83; PULSE 80; PULSE 89; RESP 18; TEMP 36.6; O2SAT 100
[2023-09-27] MEDS: ENOXAPARIN 40 MG/0.4 ML SYRINGE SUB-Q (08:42)
[2023-09-27] MEDS: POTASSIUM CHLORIDE 20 MEQ ER TABLET 40 MEQ PO (08:43)
--- NOTE | 2023-09-27 09:04 | ECG_ITS ---
Measurements Intervals Leiter Rate: 78 P: 76 DE: 146 QRS: 83 QRSD: 106 T: 73 QT: 375 QTc: 429 Interpretive Statements SINUS RHYTHM NONSPECIFIC ST ELEVATION [0.05+ mV ST ELEVATION] COMPARED TO ECG 05/29/2023 05:42:15 NO SIGNIFICANT CHANGES Electronically Signed On 09-27-2023 15:12:38 REGISTERED NURSE FLOAT POOL by Latanya Neumann M.D.
--- NOTE | 2023-09-27 09:13 | PM.IMPN ---
Progress Note: A&P Assessment and Plan (1) Alcohol withdrawal: Code(s): F10.939 - Alcohol use, unspecified with withdrawal, unspecified Status: Acute Assessment and Plan: Continue Librium and p.r.n. Ativan Continue thiamine and folic acid 09/27/2023 discussed with patient that it is not safe to discharge today (2) Sinus tachycardia: Code(s): R00.0 - Tachycardia, unspecified Status: Acute Assessment and Plan: Resolved 09/27/2023 normal sinus rhythm at 82 (3) Hypokalemia: Code(s): E87.6 - Hypokalemia Status: Acute Assessment and Plan: Due to alcohol and IV fluid 09/27/2023 p.o. potassium and follow-up lab ordered Subjective Date/time seen: 09/27/23 09:13 Interval history: Feels much better. Denied pain. Tolerated breakfast. Asking to be discharged because ?I have to get some money together to pay the rent due 09/28/2023. Denied chest pain or shortness of breath. Denied GI or issues. No abnormal bleeding. Review of Systems Review of Systems: All systems reviewed & are unremarkable except as noted in HPI and below Exam Narrative: HEENT: PERRL, sclerae nonicteric, pharyngeal mucosa pink and intact NECK: No JVD, adenopathy, or thyromegaly CHEST: Clear to auscultation. Normal effort. HEART: NL S1/S2, regular, no murmur ABDOMEN: BS+, soft, nontender, no mass, no bruits EXTREMITIES: No cyanosis, edema, or clubbing NEUROLOGIC: CN intact and symmetric to inspection. MUSCULOSKELETAL: Tone and strength symmetric. PSYCH: Alert. Oriented to person, place, and time. Objective Data Vital Signs Vital Signs: Vital Signs - 24 hr 09/26/23 17:10 09/26/23 18:47 09/26/23 20:57 Temperature 99.0 F Pulse Rate 120 H 106 H 126 H Pulse Rate [Monitor] Respiratory Rate 16 16 16 Blood Pressure 126/84 120/84 Pulse Oximetry 98 100 100 Oxygen Delivery Room Air 09/26/23 23:14 09/26/23 23:53 09/27/23 00:00 Temperature 98 F Pulse Rate 134 H Pulse Rate [Monitor] 132 H 128 H Respiratory Rate 18 Blood Pressure 129/69 Pulse Oximetry 99 Oxygen Delivery 12/31/23 00:00 09/27/23 00:00 09/27/23 02:00 Temperature Pulse Rate 132 H 123 H Pulse Rate [Monitor] Respiratory Rate Blood Pressure Pulse Oximetry 99 Oxygen Delivery Room Air 09/27/23 04:09 09/27/23 04:00 09/27/23 04:00 Temperature 97.5 F L Pulse Rate 101 H 94 Pulse Rate [Monitor] 94 Respiratory Rate 19 Blood Pressure 112/69 Pulse Oximetry 98 Oxygen Delivery 09/27/23 04:00 09/27/23 06:00 09/27/23 08:00 Temperature 97.8 F Pulse Rate 95 89 Pulse Rate [Monitor] Respiratory Rate 18 Blood Pressure 137/83 Pulse Oximetry 98 100 Oxygen Delivery Room Air Intake/Output Intake/Output: Intake & Output 09/24/23 09/25/23 09/26/23 09/27/23 23:59 23:59 23:59 23:59 Intake Total 2100 710 Balance 2100 710 Meds/Results Medications: Active Medications Generic Name Dose Route Start Last Admin Trade Name Freq PRN Reason Stop Dose Admin Chlordiazepoxide HCl 25 mg 09/27/23 00:00 09/27/23 06:17 Chlordiazepoxide (*Crx) 25 Mg Capsule PO 25 mg Q6HR ELAINA Administration Enoxaparin Sodium 40 mg 09/27/23 09:00 09/27/23 08:42 Enoxaparin 40 Mg/0.4 Ml Syringe SUB-Q 40 mg DAILY ELAINA Administration Lorazepam 2 mg 09/26/23 22:07 Lorazepam Inj (*Crx) 2 Mg/Ml Vial IV PUSH Q2H PRN CIWA > 15 Potassium Chloride 40 meq 09/27/23 12:00 Potassium Chloride 20 Meq Er Tablet PO 09/27/23 12:01 ONCE ONE Labs Labs: Laboratory Results - last 24 hr 09/26/23 09/26/23 09/26/23 18:24 20:04 23:55 WBC 11.8 H RBC 5.22 Hgb 16.2 Hct 47.5 MCV 91.0 MCH 31.0 MCHC 34.1 RDW 12.3 Plt Count 270 MPV 9.1 Immature Gran % (Auto) 0.4 Neut % (Auto) 78.2 H Lymph % (Auto) 16.2 L [place] % (Auto) 4.3 Eos % (Auto) 0.1 Baso % (Auto) 0.8 Lymph # (Auto)
--- NOTE | 2023-09-27 17:02 | PM.DS ---
DS: Admitting Diagnosis Discharge Date 09/27/23 Admitting Diagnosis Acute alcohol intoxication DS: Discharge Diagnosis Discharge Diagnosis (1) Alcohol withdrawal: Code(s): F10.939 - Alcohol use, unspecified with withdrawal, unspecified Status: Acute Assessment and Plan: Continue Librium and p.r.n. Ativan Continue thiamine and folic acid 09/27/2023 discussed with patient that it is not safe to discharge today (2) Sinus tachycardia: Code(s): R00.0 - Tachycardia, unspecified Status: Acute Assessment and Plan: Resolved 09/27/2023 normal sinus rhythm at 82 (3) Hypokalemia: Code(s): E87.6 - Hypokalemia Status: Acute Assessment and Plan: Due to alcohol and IV fluid 09/27/2023 p.o. potassium and follow-up lab ordered DS: Summary Hospital Course Reason for hospitalization: Acute alcohol intoxication Hospital Course: This 28-year-old gentleman presented to the emergency department being acutely intoxicated with alcohol. He was admitted or IV fluids time on multivitamins and folic acid and detox. However following morning on 09/27/2023 he felt well and wished to leave the hospital. He was advised that leaving the hospital was on cedeño is he was not fully detoxed from alcohol. He was advised that he was likely to start drinking again to control his symptoms. He chose to leave the hospital against medical advice. Status at Discharge Functional status at discharge: independent ambulation Overall status at discharge: patient is back to baseline Time Spent with Patient Time attestation: Total time spent providing and/or coordinating discharge services: Exam Narrative: HEENT: PERRL, sclerae nonicteric, pharyngeal mucosa pink and intact NECK: No JVD, adenopathy, or thyromegaly CHEST: Clear to auscultation. Normal effort. HEART: NL S1/S2, regular, no murmur ABDOMEN: BS+, soft, nontender, no mass, no bruits EXTREMITIES: No cyanosis, edema, or clubbing NEUROLOGIC: CN intact and symmetric to inspection. MUSCULOSKELETAL: Tone and strength symmetric. PSYCH: Alert. Oriented to person, place, and time. DS: Data Data Completed and Pending Labs on day of discharge: Labs from last 24 hours 09/27/23 09/27/23 09/26/23 05:54 03:48 23:55 WBC 9.9 RBC 4.08 L Hgb 12.7 L D Hct 37.5 L MCV 91.9 MCH 31.1 MCHC 33.9 RDW 12.2 Plt Count 191 MPV 9.6 Immature Gran % (Auto) 0.3 Neut % (Auto) 60.6 Lymph % (Auto) 26.9 [place] % (Auto) 10.1 H Eos % (Auto) 1.2 Baso % (Auto) 0.9 Lymph # (Auto) 2.65 [place] # (Auto) 1.0 H Eos # (Auto) 0.1 Baso # (Auto) 0.1 Abs Immat Gran (auto) 0.03 Absolute Neuts (auto) 6.0 Absolute Nucleated RBC 0.0 Nucleated RBC % 0.0 Sodium 139 Potassium 3.0 L Chloride 97 L Carbon Dioxide 35 H Anion Gap 7 L BUN 16 Creatinine 0.80 Estim Creat Clear Calc 118 Estimated GFR > 60 Glucose 92 POC Capillary Glucose 125 H 153 H Calcium 8.4 Magnesium 2.5 H Total Bilirubin 0.5 AST 30 ALT 25 Alkaline Phosphatase 51 Total Protein 6.0 L Albumin 3.7 Lipase Urine Color Urine Appearance Urine pH Ur Specific [place] Urine Protein Urine Glucose (UA) Urine Ketones Ur Blood (Man) Urine Nitrate Urine Bilirubin Urine Urobilinogen Leukocyte Esterase Rfl Urine RBC Urine WBC Ur Squamous Epith Cells Urine Bacteria Urine Casts Urine Opiates Screen Urine Methadone Screen Ur Barbiturates Screen Ur Phencyclidine Scrn Ur Amphetamine Screen U Benzodiazepines Scrn Urine Cocaine Screen U Cannabinoids Screen Ethyl Alcohol 09/26/23 09/26/23 20:04 18:24 WBC 11.8 H RBC 5.22 Hgb 16.2 Hct 47.5 MCV 91.0 MCH 31.0 MCHC 34.1 RDW 12.3 Plt Count 270 MPV 9.1 Immature Gran % (Auto) 0.4 Neut % (Auto) 78.2 H Lymph % (Auto) 16.2 L Mo
== END 2023-09-27 09:55 | disposition left against medical advice (07) | DRG 770 ==
LOC: ANHED 18:07 → ANHIMU 09-27 00:16
PROVIDERS: Admitting Provider General Practice; Emergency Provider Emergency Medicine; Visit Provider Internal Medicine
DX: F10.239 Alcohol dependence with withdrawal, unspecified (principal); F10.229 Alcohol dependence with intoxication, unspecified; E87.29 Other acidosis; E87.6 Hypokalemia; F41.9 Anxiety disorder, unspecified; R00.0 Tachycardia, unspecified; F17.210 Nicotine dependence, cigarettes, uncomplicated
CPT/HCPCS: 36415; 80053; 80307; 81001; 82948; 83690; 83735; 85025; 93005; 96361; 96375; 96376; 99285; A9270; J1650; J2060; J3411; J3475; J7030; J7042

== ENCOUNTER 2024-01-14 07:06 | Observation (INO) | payer OTHER, SELFPAY ==
[2024-01-14] VITALS (8 sets, daily range): BP systolic 100–122; BP diastolic 58–78; PULSE 77–115; RESP 12–21; TEMP 36.4–37.1; O2SAT 97–100
--- NOTE | ~2024-01-14 | CT_ITS ---
EXAMINATION: CT BRAIN W/O DATE: 01/14/2024 08:02 INDICATION: Altered mental status TECHNIQUE: Computed tomography (CT) of the head was performed without intravenous contrast. The dose- length product was 983.67 mGy-cm. Automated exposure control and iterative reconstruction technique w ere employed. COMPARISON: CT dated 05/26/2023 FINDINGS: Normal brain parenchymal volume for age. Normal burton-white differentiation. No acute intrac ranial hemorrhage, infarction, mass or mass effect. No ventriculomegaly or midline shift. Midline sagittal images demonstrate a normal corpus callosum, c raniovertebral junction and sella turcica. Basilar cisterns are patent. Paranasal sinuses and mastoids are pneumatized. No depressed skull fractures. IMPRESSION: 1. No acute intracranial abnormality. Reviewed, dictated and finalized at location A.
--- NOTE | ~2024-01-14 | CT_ITS ---
EXAMINATION: CT cervical spine wo con DATE: 01/14/2024 08:02 INDICATION: Altered mental status. Neck pain. TECHNIQUE: Computed tomography (CT) of the cervical spine was performed without intravenous contrast. The dose-length product was 432 mGy-cm. Automated exposure control and iterative reconstruction tech [employer] were employed. COMPARISON: CT dated 05/26/2023 FINDINGS: Vertebral body heights are maintained. Craniovertebral junction is normal. No evidence for perched facet. No evidence for spondylolisthesis. Odontoid process is normal. There is dextroscoliosi s. There is emphysema of the lung apices. No significant paraspinal soft tissue abnormality. IMPRESSION: 1. No acute abnormality of the cervical spine. Reviewed, dictated and finalized at location A.
--- NOTE | 2024-01-14 07:18 | ED.AMS ---
HPI - Altered Mental Status General Chief Complaint: Altered Mental Status Stated Complaint: AMS , ETOH Time Seen by Provider: 01/14/24 07:10 History of Present Illness HPI narrative: 29-year-old male presents to the emergency department from police by EMS for evaluation of altered mental status. Patient was initially placed in police custody due to public disturbance. When the patient arrived to the police station he was less responsive. EMS was called. Upon arrival emergency department patient is somnolent but is protecting his airway. Patient is saturating well 2 L of oxygen. Patient was hypotensive for EMS but did respond to fluids. Related Data Home Medications Medication Instructions Recorded Confirmed No Home Medications 09/26/23 09/26/23 Allergies Allergy/AdvReac Type Severity Reaction Status Date / Time No Known Allergies Allergy Verified 09/26/23 17:17 Review of Systems Review of Systems: All systems reviewed & are unremarkable except as noted in HPI and below PMFSH Past Medical History Medical History ETOHism Family History Family History (Updated 09/26/23 @ 23:10 by Reena Astorga RN) Other No significant family history Social History Social History Smoking packs per day: 1 Smoking cigarettes per day: 20.0 Years smoked: 5 Smoking pack-years: 5.00 Smoking status: Heavy tobacco smoker Tobacco type: cigarettes Alcohol intake: current Substance use: former Other substance usage details: Fifth of vodka daily Last use: 09/25/23 Do You Feel Safe in your Home?: Yes Lack of Transportation: No Lack of Food: Never True Current Housing: I Have Housing Concerned About Future Housing: No Difficulty Paying Gas/Electric Bills: No Difficulty Paying for Meds: No Currently Unemployed: YES Education: High School Diploma/GED Difficulty w/ Childcare or Family Care: No Spiritual care concerns: No Exam Narrative: APPEARANCE: Somnolent and intoxicated HEAD: normocephalic, atraumatic. EYES: PERRLA/EOMI, conjunctivae clear. NOSE: Normal no drainage EARS:TMS clear with good light reflex. THROAT: Pharynx clear, no exudate. NECK: Supple. No adenopathy, no masses. RESPIRATORY: Airway patent, respirations nonlabored. Clear to auscultation bilaterally, no rales, rhonchi, wheezing. CARDIOVASCULAR: Regular rate and rhythm without murmurs rubs or gallops. ABDOMINAL: Soft, nontender, nondistended, normal bowel sounds MUSCULOSKELETAL: Moves all extremities. Strength/ROM intact, No edema, No calf tenderness. NEURO: Alert. Cranial nerves II through XII intact. Grossly intact Course Vital Signs Vital signs: Vital Signs Temperature 97.6 F 01/14/24 07:05 Pulse Rate 91 01/14/24 07:05 Respiratory Rate 21 H 01/14/24 07:05 Blood Pressure 122/58 L 01/14/24 07:05 Pulse Oximetry 97 01/14/24 07:05 Oxygen Delivery Room Air 01/14/24 07:05 Temperature 98.7 F 01/14/24 10:30 Pulse Rate 97 01/14/24 12:00 Respiratory Rate 20 01/14/24 12:00 Blood Pressure 104/67 01/14/24 12:00 Pulse Oximetry 98 01/14/24 12:00 Oxygen Delivery Room Air 01/14/24 12:00 MDM - Altered Mental Status MDM Narrative Medical decision making narrative: 29-year-old male present to the emergency department for evaluation of altered mental status. Patient was found to be heavily intoxicated. Patient's blood alcohol was 512. At initial evaluation patient was obtunded but during 2 hours of observation in the emergency department patient is more alert and does have a gag reflex. Patient is still very somnolent but is currently protecting his airway does not need to be intubated. Case was discussed with the operations associate patient will be admitted to the ICU. Case was also discussed with the hospitalist. Patient is afebrile with no leukocytosis and
[2024-01-14 07:47] LABS: Appearance Urine Clear (Clear); Basophils Absolute Auto 0.1 K/mm3 (0.0-0.1); Basophils Percent Auto 1.2 % (0.2-1.2); Bilirubin Urine Negative (Negative); Blood Urine Negative (Negative); Color Urine Yellow (Yellow); Eosinophils Absolute Auto 0.1 K/mm3 (0-0.3); Eosinophils Percent Auto 1.3 % (0-4.4); Glucose Urine UA Negative (Negative); Hematocrit 44.5 % (42.0-52.0); Hemoglobin 14.7 g/dL (14.0-18.0); Immature Granulocyte Absolute 0.04 K/mm3 (0.00-0.031); Immature Granulocyte Percent A 0.5 % (0-0.5); Ketones Urine Negative (Negative); Leukocyte Esterase Ur Negative LEU/UL (Negative); Lymphocytes Absolute Auto 2.56 K/mm3 (0.9-3.2); Lymphocytes Percent Auto 33.6 % (18.3-44.2); Mean Corpuscular Hemoglobin 30.8 pg (26-34); Mean Corpuscular Volume 93.1 fl (80-100); Mean Platelet Volume 9.6 fl (7.4-10.4); Monocytes Absolute Auto 0.6 K/mm3 (0.1-0.6); Monocytes Percent Auto 7.6 % (2.6-8.5); Neutrophils Absolute Auto 4.3 K/mm3 (1.3-6.7); Neutrophils Percent Auto 55.8 % (45.5-73.1); Nitrate Urine Negative (Negative); Platelet Count Result 208 k/mm3 (150-375); Protein Urine Negative (Negative); Red Blood Count 4.78 M/mm3 (4.6-6.20); Red Cell Distribution Width 12.3 % (11.5-14.5); Specific Grav Ur 1.009 (1.001-1.035); Urobilinogen Urine 0.2 mg/dL (<2.0); White Blood Count 7.6 K/mm3 (4.5-10.0); pH Urine 6.5 (5.0-9.0)
[2024-01-14 07:56] LABS: Add Urine Microscopic? NO; Lactic Acid Reflex 1.9 mmol/L (0.7-2.0)
[2024-01-14 07:56] LABS: Alanine Aminotransferase 23 U/L (6-50); Albumin Level 4.2 g/dL (3.5-5.1); Alkaline Phosphatase 49 U/L (38-126); Anion Gap 10 mmol/L (4-12); Aspartate Amino Transferase 24 U/L (17-59); Bilirubin,Total 0.3 mg/dL (0.2-1.3); Blood Urea Nitrogen 12 mg/dL (9-20); Calcium 7.7 mg/dL (8.4-10.2); Carbon Dioxide 25 mmol/L (22-30); Chloride 110 mmol/L (98-107); Estimated CRCL calculation 119 ml/min; Estimated Glomerular Filt Rate > 60; Glucose 99 mg/dL (65-110); Potassium 3.6 mmol/L (3.4-5.0); Sodium 145 mmol/L (137-145)
[2024-01-14] MEDS: SODIUM CHLORIDE 0.9% IV 1,000 ML 150 ML IV CONT (08:12)
[2024-01-14 08:49] LABS: Ethanol 512 mg/dL (<10)
[2024-01-14 09:47] LABS: Amphetamine Screen Urine Negative (Negative); Barbiturate Screen Urine Negative (Negative); Benzodiazepines Screen Urine Negative (Negative); Cannabinoid Screen Urine Negative (Negative); Cocaine Screen Urine Negative (Negative); Methadone Screen Urine Negative (Negative); Opiate Screen Urine Negative (Negative); Phencyclidine Screen Urine Negative (Negative)
[2024-01-14] MEDS: LACTATED RINGERS 1,000 ML 999 ML IV CONT (10:45)
--- NOTE | 2024-01-14 10:45 | WPDCNINT ---
Assessment and Plan Assessment and plan (1) Alcoholic intoxication: Code(s): F10.929 - Alcohol use, unspecified with intoxication, unspecified Status: Acute Assessment and Plan: Patient presented with being belligerent at a public place, was picked up by police, taken to the police station where he was less responsive, EMS was called and patient was brought to the [place] ER on 01/14/2024 -in the ER patient was obtunded but protecting his airway, later on patient became a little agitated and was placed in restraints. He was intermittently somnolent, agitated with laughing and crying intermittently. -patient has received 3 L IV fluid bolus -continue maintenance IV fluids -continue to monitor -started on folic acid and thiamine -patient's alcohol levels of 512 on this admission (2) Altered mental status: Code(s): R41.82 - Altered mental status, unspecified Status: Acute Assessment and Plan: Likely secondary to intoxication -continue to monitor -patient has been more awake since he arrived to the ER (3) ETOHism: Code(s): F10.20 - Alcohol dependence, uncomplicated Status: Acute Assessment and Plan: Patient has a history of alcoholism, was admitted to the hospital in August of 2023 for alcohol withdrawal and at that time he used to drink a 5th of liquor per day -will watch for alcohol withdrawal Plan DVT prophylaxis: Lovenox Stress ulcer prophylaxis: Not indicated Nutrition: NPO for now Code Status: Full code Critical Care Time Spent: 46 minutes Due to a high probability of clinically significant, life threatening deterioration, the patient required my highest level of preparedness to intervene emergently and I personally spent this critical care time directly and personally managing the patient. This critical care time included obtaining a history; examining the patient; pulse oximetry; ordering and review of studies; arranging urgent treatment with development of a management plan; evaluation of patient's response to treatment; frequent reassessment; and discussions with other providers. It was exclusive of separately billable procedures and treating other patients and teaching time. Please see Assessment and Plan section and the rest of the note for further information on patient assessment and treatment This dictation may have been done utilizing a voice recognition system. Attempts have been made to correct errors. However, there may be uncorrected grammatical, spelling, and recognitions errors present. Youth Leader Consult Note Consult date: 01/14/24 Reason for consult: Alcohol intoxication HPI: Rodrigo Cage is a 29 year old male with past medical history of alcohol alcohol abuse/intoxication drinks about a 5th of liquor per day presented to the ED from the police station where he was arrested for public disturbance. And at the police station patient was less responsive so EMS was called and transferred to the ER for further workup. In the ER patient's mental status was waxing and waning, he was protecting his airway, but was somnolent at times and agitated at other times. Patient was placed in restraints and given 1 L IV fluid bolus and transferred to ICU for further management. Pt seen and examined in the ICU upon arrival. Pt is awake, is intoxicated, awake. receiving 3rd liter of fluid bolus. Hemodynamically stable, good urine output, afebrile. Denies any pain or SOB, denies nausea or vomiting. Patient otherwise not able to answer many questions this time or provide any history Review of Systems Review of Systems: All systems reviewed & are unremarkable except as noted in HPI and below PMFSH Past Medical History Medical History ETOHism Family History Family History (Updated 09/26/23 @ 23:10 by Reena Astorga RN) Other No significant family history Social History Social History (Reviewed
--- NOTE | 2024-01-14 10:58 | ADMGEN ---
This patient, Rodrigo Cage, was admitted to Intensive Care Unit-3. Patient/family oriented to hospital policies and general routines including ID bracelet, bed and alarms, visiting hours, pain management, procedures, bathroom and other care routines, personal items, smoking policy, room service/diet, and visiting hours. Information on how to activate the Rapid Response Team has been discussed. Patient/Family are encouraged to report perceived risks to care and to ask questions if they do not understand what they are told or what they should do. Patient intoxicated,unable to verbalize his current location. Alert to self and current President.
[2024-01-14] MEDS: SODIUM CHLORIDE 0.9% IV 1,000 ML 125 ML IV CONT (11:27)
[2024-01-14] MEDS: THIAMINE HCL 200 MG/2 ML VIAL 100 MG IV PUSH (12:08)
[2024-01-14] MEDS: FOLIC ACID 1 MG/0.2 ML INJ IV PUSH (12:09)
--- NOTE | 2024-01-14 13:30 | PC.NURSE ---
Updated patient on plan of care and reason for admission. Patient angry and yelling. Restraints still in place.
--- NOTE | 2024-01-14 13:56 | PC.NURSE ---
Dr. Mar, Dr Franks at bedside. Patient requesting to leave AMA.
--- NOTE | 2024-01-14 14:17 | PM.SD2 ---
Same Day Admit/Disch: HPI History of Present Illness Chief complaint: alcohol intoxication Narrative: Rodrigo Cage is a 29 year old male admitted with high ethanol levels. as per ED note - Patient was initially placed in police custody due to public disturbance.? When the patient arrived to the police station he was less responsive.? EMS was called.? Upon arrival emergency department patient is somnolent but is protecting his airway. Pt was admitted to ICU, but pt appears more awake now wanting to leave AMA screaming and yelling to go home. PMFSH Past Medical History Medical History ETOHism Family History Family History Other No significant family history Social History Social History Smoking packs per day: 1 Smoking cigarettes per day: 20.0 Years smoked: 5 Smoking pack-years: 5.00 Smoking status: Heavy tobacco smoker Tobacco type: cigarettes Alcohol intake: current Substance use: former Other substance usage details: Fifth of vodka daily Last use: 09/25/23 Do You Feel Safe in your Home?: Yes Lack of Transportation: No Lack of Food: Never True Current Housing: I Have Housing Concerned About Future Housing: No Difficulty Paying Gas/Electric Bills: No Difficulty Paying for Meds: No Currently Unemployed: YES Education: High School Diploma/GED Difficulty w/ Childcare or Family Care: No Spiritual care concerns: No Same Day Admit/Disch: Med Pre-admit Medications Home Medications Medication Instructions Recorded Confirmed Type No Home Medications 09/26/23 09/26/23 History Review of Systems Review of Systems Sleepiness Otherwise no positives for 12 point systems of review Exam Narrative: General: Young gentleman, intoxicated, awake screaming to go home in ICU HEENT:? Pupils equal and reactive, sclera is clear Neck:? Supple Respiratory:? Clear to auscultation bilaterally, adequate air entry, no wheezing Cardiac:? S1-S2 normal, tachycardia Abdomen:? Soft, nontender, nondistended, normoactive bowel sounds Extremities:? No edema, palpable pedal pulses Neuro:? Patient intoxicated, awake, able to answer few questions but unable to give any history, moves all extremities spontaneous Skin:? Warm and dry DS: Data Data Completed and Pending Labs on day of discharge: Labs from last 24 hours 01/14/24 01/14/24 07:37 07:36 WBC 7.6 RBC 4.78 Hgb 14.7 Hct 44.5 MCV 93.1 MCH 30.8 MCHC 33.0 RDW 12.3 Plt Count 208 MPV 9.6 Immature Gran % (Auto) 0.5 Neut % (Auto) 55.8 Lymph % (Auto) 33.6 [place] % (Auto) 7.6 Eos % (Auto) 1.3 Baso % (Auto) 1.2 Lymph # (Auto) 2.56 [place] # (Auto) 0.6 Eos # (Auto) 0.1 Baso # (Auto) 0.1 Abs Immat Gran (auto) 0.04 H Absolute Neuts (auto) 4.3 Absolute Nucleated RBC 0.000 Nucleated RBC % 0.0 Sodium 145 Potassium 3.6 Chloride 110 H Carbon Dioxide 25 Anion Gap 10 BUN 12 Creatinine 0.70 Estim Creat Clear Calc 119 Estimated GFR > 60 Glucose 99 Lactic Acid 1.9 Calcium 7.7 L Total Bilirubin 0.3 AST 24 ALT 23 Alkaline Phosphatase 49 Total Protein 7.0 Albumin 4.2 Urine Color Yellow Urine Appearance Clear Urine pH 6.5 Ur Specific [place] 1.009 Urine Protein Negative Urine Glucose (UA) Negative Urine Ketones Negative Ur Blood (Man) Negative Urine Nitrate Negative Urine Bilirubin Negative Urine Urobilinogen 0.2 Leukocyte Esterase Rfl Negative Urine Opiates Screen Negative Urine Methadone Screen Negative Ur Barbiturates Screen Negative Ur Phencyclidine Scrn Negative Ur Amphetamine Screen Negative U Benzodiazepines Scrn Negative Urine Cocaine Screen Negative U Cannabinoids Screen Negative Ethyl Alcohol 512 H* DS: Summary H
== END 2024-01-14 14:29 | disposition left against medical advice (07) ==
LOC: ANHED 09:11 → ANHICU 09:58
PROVIDERS: Admitting Provider Family Medicine; Emergency Provider Emergency Medicine; Visit Provider Family Medicine
DX: F10.229 Alcohol dependence with intoxication, unspecified (principal); Y90.8 Blood alcohol level of 240 mg/100 ml or more; R41.82 Altered mental status, unspecified; F17.210 Nicotine dependence, cigarettes, uncomplicated; Z53.29 Procedure and treatment not carried out because of patient's decision for other reasons
CPT/HCPCS: 36415; 70450; 72125; 80053; 80307; 81003; 83605; 85025; 96361; 96374; 96375; 99285; G0378; J3411; J7030; J7120

== ENCOUNTER 2024-02-26 23:43 | Emergency (ER) | payer OTHER, SELFPAY ==
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
[2024-02-26 23:45] VITALS: BP 128/72; PULSE 88; RESP 15; TEMP 36.8; O2SAT 100
[2024-02-26 23:57] VITALS: BP 128/72; PULSE 73; RESP 16; O2SAT 100
[2024-02-27] MEDS: IBUPROFEN 600 MG TABLET PO (00:27)
--- NOTE | 2024-02-27 00:33 | ED.GENADULT ---
HPI - General Adult General Chief complaint: Extremity Injury, Lower Stated complaint: ankle pain Time Seen by Provider: 02/26/24 23:51 Source: patient and EMS Mode of arrival: EMS Limitations: no limitations History of Present Illness HPI narrative: This is a 29-year-old male who presents to the ED via EMS from [facility] for chief complaint of right ankle injury that occurred this evening. Patient states that he was playing basketball and suffered an inversion injury to the right ankle. Does not remember feeling or hearing any pop. He does state that it felt like the ankle bent pretty far. Denies numbness, weakness or any further sites of pain or injury. Related Data Home Medications Medication Instructions Recorded Confirmed No Home Medications 09/26/23 09/26/23 Allergies Allergy/AdvReac Type Severity Reaction Status Date / Time No Known Allergies Allergy Verified 09/26/23 17:17 Review of Systems Review of Systems: All systems as dictated in HPI PMFSH Past Medical History Medical History ETOHism Family History Family History Other No significant family history Social History Social History Smoking packs per day: 1 Smoking cigarettes per day: 20.0 Years smoked: 5 Smoking pack-years: 5.00 Smoking status: Heavy tobacco smoker Tobacco type: cigarettes Alcohol intake: current Substance use: former Other substance usage details: Fifth of vodka daily Last use: 09/25/23 Do You Feel Safe in your Home?: Yes Lack of Transportation: No Lack of Food: Never True Current Housing: I Have Housing Concerned About Future Housing: No Difficulty Paying Gas/Electric Bills: No Difficulty Paying for Meds: No Currently Unemployed: YES Education: High School Diploma/GED Difficulty w/ Childcare or Family Care: No Spiritual care concerns: No Exam Narrative: GENERAL: Well-appearing, well-nourished, and in no acute distress. HEAD: Normocephalic, atraumatic. EYES: PERRLA and EOMI. ENT: Nares clear, no rhinorrhea or epistaxis. Mucous membranes moist. Oropharynx without tonsillar hypertrophy exudate or other lesions. NECK: Supple. No adenopathy or masses. CHEST: No respiratory distress. Clear to auscultation. No wheezes rales or rhonchi HEART: Regular rate and rhythm. No murmur heard. Normal peripheral pulses. ABDOMEN: Soft, nontender, nondistended, normal active bowel sounds. MSK: RLE: Mild right ankle soft tissue swelling. Range of motion reduced due to pain. Mild tenderness throughout the ankle joint. Neurovascularly intact distally. No deformity. No bruising. LLE: Benign SKIN: Warm, dry, no rash. NEURO: Alert and oriented x3. No focal deficits. PSYCH: Normal mood and affect. Course Vital Signs Vital signs: Vital Signs Temperature 98.3 F 02/26/24 23:45 Pulse Rate 88 02/26/24 23:45 Respiratory Rate 15 02/26/24 23:45 Blood Pressure 128/72 02/26/24 23:45 Pulse Oximetry 100 02/26/24 23:45 Oxygen Delivery Room Air 02/26/24 23:45 Temperature 98.3 F 02/26/24 23:45 Pulse Rate 73 02/26/24 23:57 Respiratory Rate 16 02/26/24 23:57 Blood Pressure 128/72 02/26/24 23:57 Pulse Oximetry 100 02/26/24 23:57 Oxygen Delivery Room Air 02/26/24 23:45 Medical Decision Making MDM Narrative Medical decision making narrative: This is a 29-year-old male who presents to the ED with chief blood right ankle injury. Vitals are normal. Exam remarkable for the above. X-ray show no acute fracture. Symptoms and presentation consistent with ankle sprain. He will be given Ross wrap and crutches here. Discharged stable condition back to [facility] Vital Signs Vital Signs: Vital Signs Temperature 98.3 F 02/26/24 23:45 Pulse Rate 88 02/26/24
[2024-02-27 01:09] VITALS: BP 116/70; PULSE 70; RESP 14; O2SAT 100
== END 2024-02-27 01:10 | disposition home or self-care (01) ==
PROVIDERS: Emergency Provider Physician Assistant; PCP Family Medicine
DX: S93.401A Sprain of unspecified ligament of right ankle, initial encounter (principal); S96.911A Strain of unspecified muscle and tendon at ankle and foot level, right foot, initial encounter; F10.20 Alcohol dependence, uncomplicated; F17.210 Nicotine dependence, cigarettes, uncomplicated; X50.9XXA Other and unspecified overexertion or strenuous movements or postures, initial encounter; Y93.67 Activity, basketball
CPT/HCPCS: 73610; 99283; A9270

== ENCOUNTER 2025-04-22 14:09 | Emergency (ER) | payer OTHER, SELFPAY ==
--- NOTE | ~2025-04-22 | CT_ITS ---
History: Fall PROCEDURE: CT cervical spine and facial bones without intravenous contrast. COMPARISON: 01/14/2024 TECHNIQUE: Multiple contiguous axial images of the cervical spine and facial bones were performed without the ad ministration of intravenous contrast. DLP: 350 mGy-cm FINDINGS: Straightening and slight reversal of the normal curvature of the cervical spine is identified, likely muscular in origin. No acute fractures are present within the cervical spine or the facial bones. Biapical scarring. Retention cyst within the left maxillary sinus. Remaining paranasal sinuses are unremarkable. The airway is patent. Impression: Straightening and slight reversal of the normal curvature of the cervical spine, likely muscular in o rigin. No acute fracture within the cervical spine or facial bones. Reviewed, dictated and finalized at location A. Impression: Straightening and slight reversal of the normal curvature of the cervical spine , likely muscular in origin. No acute fracture within the cervical spine or facial bones.
--- NOTE | ~2025-04-22 | CT_ITS ---
EXAMINATION: CT brain wo con DATE: 04/22/2025 15:03 INDICATION: ETOH, s/p fall . TECHNIQUE: Computed tomography (CT) of the head was performed without intravenous contrast. The mA wa s adjusted according to patient size. Iterative reconstruction technique was employed. The dose-lengt h product was 718.98 mGy-cm. COMPARISON: 01/14/2024. FINDINGS: No acute intracranial hemorrhage or extra-axial fluid collection. No hydrocephalus, mass, or herniation. No acute ischemic infarct. Unremarkable dural venous sinus attenuation. No acute osseous abnormality. Right maxillary retention cyst/polyp, aerated secretions in the right posterior ethmoid sinus, and no dular mucosal thickening in the posterior left ethmoid sinus and left sphenoid sinus, the remaining a erated spaces are clear. IMPRESSION: No acute intracranial process. Aerated secretions in the right posterior ethmoid sinus may represent acute sinusitis or minor mucosa l hemorrhage in the setting of trauma. Reviewed, dictated and finalized at location K. IMPRESSION: No acute intracranial process. Aerated secretions in the right posterior ethmoid sinus may represent acute sin usitis or minor mucosal hemorrhage in the setting of trauma.
[2025-04-22 14:13] VITALS: BP 130/88; PULSE 116; RESP 18; TEMP 36.6; O2SAT 97
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
--- OUTSIDE RECORDS SUMMARY | 2025-04-22 14:19 | XMS_ITS | Clinical Summary ---
Author Organization [facility] Address [address] [place] [address] Phone Care Team Providers Care Hydraulic Mechanic Name Role Phone Durga Darden MD Primary Care Provider [phone] Allergies No known active allergies Medications * This document contains information received from the source organization and may not represent a complete record from that organization. terbinafine (LamISIL) 250 MG TabletIndicatio ns:Toenail treatment-Funga l Take 250 mg by mouth daily. Indications: Toenail treatment-Fu ngal Active Active Problems Problem Noted Date Diagnosed Date Alcohol withdrawal 05/20/2024 Tobacco dependence 05/20/2024 Onychomycosis 05/20/2024 Family History Relation Name Status Comments Father Mother Tran Alive Social History Tobacco Use Types Packs/Day Years Used Date Smoking Tobacco: Never Smokeless Tobacco: Never Tobacco Cessation:Counseling Given: Not Answered Alcohol Use Standard Drinks/Week Comments Yes 0 (1 standard drink = 0.6 oz pur e alcohol) a fifth a day [facility] Utilities Answer Date Recorded In the past 12 months has [employer], gas, oil, or water [employer] threatened to shut off services in your home? No 05/20/2024 Social Connection and Isolation Panel Answer Date Recorded In a typical week, how many times do you talk on the phone with family, friends, or neighbors? More than three times a week 05/20/2024 How often do you get togethe r with friends or relatives? Twice a week 05/20/2024 How often do you attend chur ch or confucianist services? Never 05/20/2024 Do you belong to any clubs o r organizations such as evangelical groups, unions, fraternal or athletic groups, or school groups? No 05/20/2024 How often do you attend meet ings of the clubs or organizations you belong to? Never 05/20/2024 Are you , , di vorced, , never , or living with a partner? Never 05/20/2024 AUDIT-C Answer Date Recorded Q1: How often do you have a drink containing alcohol? 4 or more times a week 05/20/2024 Q2: How many drinks containi ng alcohol do you have on a typical day when you are drinking? 10 or more Q3: How often do you have si x or more drinks on one occasion? Daily or almost daily 05/20/2024 Overall Financial Resource Strain (CARDIA) Answe r Date Recorded How hard is it for you to pa y for the very basics like food, housing, medical care, and heating? Not hard at all 05/20/2024 [facility] - Occupational Stress Questionnaire Answer Date Recorded Do you feel stress - tense, restless, nervous, or anxious, or unable to sleep at night because your mind is troubled all the time - these days? Very much 05/20/2024 Exercise Vital Sign Answer Date Recorde d On average, how many days pe r week do you engage in moderate to strenuous exercise (like a brisk walk)? 3 days 05/20/2024 On average, how many minutes do you engage in exercise at this level? 60 min 05/20/2024 Hunger Vital Sign Answer Date Recorded Within the past 12 months, y ou worried that your food would run out before you got the money to buy more. Never true 05/20/20 24 Within the past 12 months, t he food you bought just didn't last and you didn't have money to get more. Never true 05/20/2024 PRAPARE - Transportation Answer Date Re corded In the past 12 months, has l ack of transportation kept you from medical appointments or from getting medications? No 04/29 In the past 12 months, has l ack of transportation kept you from meetings, work, or from getting things needed for daily living? No 05/20/2024 Housing Stability Vital Sign Answer Christos e Recorded In the last 12 months, was t here a time when you were not able to pay the mortgage or rent on time? No 05/20/2024 In the past 12 months, how m any times have you moved where you were living? 2 05/20/2024 At any time in the past 12 m [facility], were you homeless or living in a mcc (including now)? Yes 05/20/2024 Sexually Active Control Partners Comments Not Currently Female Sex and Gender Information Value Date Recorded Sex Assigned at Not on file Legal Sex Male 3:11 PM CDT Gender Identity Not on file Sexual Orientation Not on file Last Filed Vital Signs Vital Sign Reading Time Taken Comments Blood Pressure 98/71 05/26/2024 6:43 AM CDT Pulse 87 05/26/2024 6:43 AM CDT Temperature 37.1 C (98.7 F) 05/25/2024 6:28 PM CDT Respiratory Rate 16 05/26/2024 6:43 AM CDT Oxygen Saturation 100% 05/26/2024 6:43 AM CDT Inhaled Oxygen Concentration - - Weight 74.1 kg (163 lb 5.8 oz) 05/25/2024 6:28 P M CDT Height 177.8 cm (5' 10) 05/25/2024 6:28 PM CDT Body Mass Index 23.44 05/25/2024 6:28 PM CDT Plan of Treatment Health Maintenance Due Date Last Done Comments Hepatitis C Virus (HCV) Screening 1993 Human Papillomavirus (HPV) Immunization (1 - Male 3-dose series) 01/04/2008 Hepatitis B Immunization (1 of 3 - 19+ 3-dose series) 01/04/2012 Pneumococcal Immunization Combined (1 of 2 - PCV) 01/04/2012 SARS-COV-2 Immunization ( - season) 2024 Influenza Immunization (#1) 2025 Respiratory Syncytial Virus (RSV) Immunization (Adult) (1 - 1-dose 75+ series) 01/04/2068 TdaP Immunization Completed 03/24/2020, 03/27/2017 Meningococcal Immunization (ACWY) Aged Out No longer eligible b ased on patient's age to complete this topic Rotavirus Immunization Aged Out No lo nger eligible based on patient's age to complete this topic Medical Devices Implanted Type Area Sterile Technician Device Identifier Shelf Expiration Date Model / Serial / Lot Plate And Screws Insurance MEDICAID AETNA [facility] Advance Directives * Full Code (Latest Code Status on File) Date Activated Date Inactivated Comments 05/21/2024 1:41 AM 05/25/2024 12:19 PM CPR-Full Tr eatment: FULL ARREST: Attempt Resuscitation/CPR wit intubation and mechanical ventilation. PRE-ARREST: Use entire range of life support measures to stabilize the patient. Care Teams Hydraulic Mechanic Relationship Specialty Start Date End Date Durga Darden MD [address] [place] [address] [address] PCP - General Harness Cutter 05/19/24
--- OUTSIDE RECORDS SUMMARY | 2025-04-22 14:19 | XMS_ITS | Referral Summary ---
Author Organization [facility] Address [address] [place] [address] Care Team Providers Care Company Dancer Name Role Phone Durga Darden MD Primary Care Provider [phone] Encounters Date Type Department Care Team Description 02/10/2025 11:30 AM CDT Office Visit [facility] Primary Care at [address] [place] [phone] Britt Gautam, MONA Acute pain of left shoulder due to trauma (Primary Dx) from Last 3 Months Allergies No known active allergies Medications terbinafine [...] 09/01/2024 Assessment & Plan (09/01/2024 12:43 PM RAGMAN): Discussed lifestyle modifications, diet and exercise. Routine [...] Nasal saline spray (Simply saline, Little Remedies, [place], [place]) 2 second sprays or 2 squeezes into [...] 018 Assessment & Plan (09/01/2024 12:41 PM RAGMAN): Recent admission Most recent presentation consistent with [...] time Continue current regimen Alcohol abuse 05/20/2017 Immunizations Immunization Administration Dates Next Due DTaP 03/01/2018,03/27/2017 Influenza, Unspecified 02/10/2025(Deferr ed: Patient Refused),12/07/2022(Deferred: Patient Refused) Tdap 03/24/2020,03/27/2017 Social History Tobacco Use Types Packs/Day Years [...] on file Legal Sex Male 10:58 PM RAGMAN Gender Identity Not on file Sexual Orientation [...] 02/10/2025 11:17 AM CDT Plan of Treatment Not on file Procedures Procedure Name Priority Date/Time Associated Diagnosis Comments HEPATITIS C ANTIBODY Routine 09/01/2024 12:56 PM RAGMAN Need for hepatitis B screening test from Last 3 Months or Most Recently Relevant to Health Maintenance Results * Hepatitis C antibody Blood (09/01/2024 12:56 PM RAGMAN) Hep C Ab Nonreactive Nonreactive Comment: Interpretive [...] last revised on 2019. Testing performed by: [facility], [address] [place] [address], [place]., [address] Blood 09/01/2024 12:5 6 PM RAGMAN 09/01/2024 8:40 PM RAGMAN us Durga Darden MD LAB MICROBIOLOGY - GENERAL ORDER TONNY Final Result [facility] 1 [facility] [place] [address] from Last 3 Months or Most Recently Relevant to Health Maintenance Insurance [facility] Advance Directives For more information, please contact: [phone] * Full Code (Latest Code Status on File) Date Activated Date Inactivated Comments 03/02/2018 4:05 AM 03/03/2018 6:58 PM Care Teams Company Dancer Relationship Specialty Start Date End Date Durga Darden MD [address] [facility] [place] [id number] PCP - General Family Medicine 03/11/23
--- OUTSIDE RECORDS SUMMARY | 2025-04-22 14:19 | XMS_ITS | Patient Health Record ---
Author Organization [facility] Address [address] [place] [address] Care Team Providers Care Forklift Driver Name Role Phone Demi Mcmullen Primary Care Provider Demi Amaya Unavailable [phone] Allergies No Known Allergies Reason For Referral No Information Medications Medication SIG (Take, Route, Frequency, Duration) Notes Start Date End Date Status Multivitamin Adult - as directed Orally Active Librium 25 MG 1 capsule Orally Three times a day dosage pre CIWA score Not-Taking Terbinafine HCl 250 MG 1 tablet Orally Once a day Active carBAMazepine 200 MG 1 tablet Orally Twice a day; Duration: 30 day(s) Not-Taking hydrOXYzine HCl 25 MG 2 tablet as needed Orally every 4 hours Active Folic Acid 1 MG 1 tablet Orally Once a day; Duration: 30 day(s) Not-Taking Thiamine HCl 100 MG 1 tablet Orally Once a day; Duration: 30 day(s) Not-Taking Social History Tobacco Use: Social History Observation Description Date Details (start date - stop date) Never Smoker NA - NA Sex Assigned At : Social History Observation Description Sex Assigned At Male Dont use, Tobacco Use/Smoking Question Answer Notes Are you a current smoker How often do you smoke cigarettes? every day How many cigarettes a day do you smoke? 11-20 How soon after you wake up do you smoke your fir st cigarette? within 5 minutes PRAPARE Question Answer Notes Date Completed/Updated: 02/02/2024 What is your current housing situation? I do not have housing (staying with others, in a hotel, in a skilled nursing, living outside on the street, on a beach, or in a park) Are you worried about losing your housing? Yes What is the highest level of school that you have finished? High school diploma or GED What is your current work situation? Unemployed and seeking work In the past year, have you o r any family members you live with been unable to get any of the following when it was really needed? Check all that apply I do not have problems meeting my needs Has lack of transportation k ept you from medical appointments, meetings, work or from getting things needed for daily living? Yes, it has kept me from medical appointments or from getting my medications,Yes, it has kept me from non-medical meetings, appointments, work, or getting things needed for daily living How often do you see or talk to people that you care about and feel close to? (For example: talking to friends on the phone, visiting friends or family, going to congregation or club meetings) More than 5 times a week How stressed are you? Stress is when someone feels tense, nervous, anxious, or can\t sleep at night because their mind is troubled A little bit In the past year have you sp ent more than 2 nights in a row in a prison, custodial, correction center, or juvenile correctional facility? No Are you a refugee? No What country are you from? [place] Do you feel physically and e motionally safe where you currently live? No In the past year, have you b een afraid of your partner or ex-partner? No PRAPARE Score: 10 Tobacco Control (Standard) Question Answer Notes Tobacco use: Nonsmoker Problems Problem Type SNOMED Code ICD Code Onset Dates Problem Status W/U Status Risk Notes Problem Anxiety disorder (096308869) Anxiety disorder, unspecified (F41.9) Active confirmed Problem Alcohol use disorder, severe, dependence (F10.20) Active confirmed Encounters Encounter Location Date Provider Diagnosis [address] [place] [address] 04/28/2024 Demi Amaya Plan Of Treatment No Information Insurance Providers Payer Name Payer Address Payer Phone Subscriber Number Group Number Insured Name Patient Relationship to Insured Coverage Start Date Coverage End Date [employer] (O) [address] [place] [phone] [id number] Rodrigo Cage Self - patient is the insured 0 0 Medical (General) History Medical History History ICD Code Anxiety Depression Surgical History Surgery Date(Month/Year) repair broken arm 2006 Hospitalization History Reason Date(Month/Year) alcohol detox- [facility] 03/2020
--- NOTE | 2025-04-22 14:33 | ED.ALCOHOL ---
HPI - Alcohol General Chief Complaint: Alcohol <Rodrigo Menjivar APRN - Last Filed: 04/22/25 16:54> Stated Complaint: fall, ETOH <Rodrigo Menjivar APRN - Last Filed: 04/22/25 16:54> Time Seen by Provider: 04/22/25 14:09 <Rodrigo Menjivar APRN - Last Filed: 04/22/25 16:54> Source: patient, EMS and RN notes reviewed <Rodrigo Menjivar APRN - Last Filed: 04/22/25 16:54> Mode of arrival: EMS <Rodrigo Menjivar APRN - Last Filed: 04/22/25 16:54> Limitations: altered mental status and intoxication <Rodrigo Menjivar APRN - Last Filed: 04/22/25 16:54> History of Present Illness HPI narrative: 30 y/o WM to the ED via EMS w/ ETOH intoxication and s/p fall. Per EMS and RN, pt found in the grass by bystander, EMS/Police contacted. Pt brought to ED for further care. Unknown LOC, unknown level of fall. PLastic OJ bottle and broken vodka bottle found near the pt. Pt states drinking a pint of Vodka usually when he drinks, thinks he fell, but isn't sure where or when. Pt states he drinks 3-5 days a week. Denies sz or DTs when not drinking. Pt denies any pain at this time. When asked if he has anyone to pick him up he stated no. Denies CP/SOB, N/V/D, abd pain, neck pain, BRAVO, dizziness. <Rodrigo Menjivar APRN - Last Filed: 04/22/25 16:54> MD complaint: alcohol intoxication <Rodirgo Menjivar APRN - Last Filed: 04/22/25 16:54> Last drink: unknown <Rodrigo Menjivar APRN - Last Filed: 04/22/25 16:54> Chronic alcohol use: Yes <Rodrigo Menjivar APRN - Last Filed: 04/22/25 16:54> Previous visits for alcohol intoxication: Yes <Rodrigo Menjivar APRN - Last Filed: 04/22/25 16:54> Recent trauma: Yes <Rodrigo Menjivar APRN - Last Filed: 04/22/25 16:54> Associated symptoms: denies other symptoms <Rodrigo Menjivar APRN - Last Filed: 04/22/25 16:54> Treatments prior to arrival: none <Rodrigo Menjivar APRN - Last Filed: 04/22/25 16:54> Related Data Home Medications: Home Medications ?Medication ?Instructions ?Recorded ?Confirmed ?Last Taken ?Type No Home Medications 09/26/23 09/26/23 Unknown History <Rodrigo Menjivar APRN - Last Filed: 04/22/25 16:54> Allergies/Adverse Reactions: Allergies Allergy/AdvReac Type Severity Reaction Status Date / Time No Known Allergies Allergy Verified 04/22/25 14:19 <Rodrigo Menjivar APRN - Last Filed: 04/22/25 16:54> Review of Systems Review of Systems: CONSTITUTIONAL: Denies fever, chills, or sweats. EYES: Denies visual changes, redness, or discharge. ENT: Denies rhinorrhea, congestion, sore throat, or otalgia. CARDIOVASCULAR: Denies chest pain, palpitations, or edema. RESPIRATORY: Denies cough or dyspnea. GASTROINTESTINAL: Denies abdominal pain, nausea, vomiting, or diarrhea. GENITOURINARY: Denies dysuria or hematuria. SKIN: Denies rash or itching. MUSCULOSKELETAL: Denies back pain, joint pain, or myalgia. NEUROLOGIC: Denies headache, numbness, or weakness. PSYCHIATRIC: Denies anxiety or depression. <Rodrigo Menjivar APRN - Last Filed: 04/22/25 16:54> [facility] Past Medical History Medical History: Medical History ETOHism <Rodrigo Menjivar APRN - Last Filed: 04/22/25 16:54> Family History Family History: Family History Other No significant family history <Rodrigo Menjivar APRN - Last Filed: 04/22/25 16:54> Social History Social History: Social History Smoking packs per day: 1 Smoking cigarettes per day: 20.0 Years smoked: 5 Smoking pack-years: 5.00 Smoking status: Heavy tobacco smoker Tobacco type: cigarettes Alcohol intake: current Substance use: former Other substance usage details: Fifth of vodka daily Last use: 09/25/23 Do You Feel Safe in your Home?: Yes Lack of Transportation: No Lack of Food: Never True Current Housing: I Have Housing Concerned About Future Housing: No Difficulty Paying Gas/Electric Bills: No Difficulty Paying for Meds: No Currently Unemployed: YES Education: High School Diploma/GED Difficulty w/ Childcare or Family Care: No Spiritual care concerns: No <Rodrigo Menjivar APRN - Last Filed: 04/22/25 16:54> Exam Narrative: GENERAL: Visibly intoxicated, well-nourished, and in no acute distress. HEAD: Normocephalic, dried blood noted to upper and lower lips and 2 front teeth. No loose teeth noted, singular 0.5cm laceration to upper lip noted, bleeding controlled. EYES: PERRLA and EOMI. ENT: Nares clear, no rhinorrhea or epistaxis. Mucous membranes moist. NECK: Supple. CHEST: Clear to auscultation. No respiratory distress. HEART: Regular rate and rhythm. No murmur heard. Normal peripheral pulses. ABDOMEN: Soft, nontender, nondistended, normal active bowel sounds. EXTREMITIES: Normal range of motion. No edema. SKIN: Warm, dry, no rash. 1.5cm laceration to left hand w/ bandage in place per EMS. NEURO: No focal deficits. Alert and oriented x3. PSYCH: Normal mood and affect. <Rodrigo Menjivar APRN - Last Filed: 04/22/25 16:54> Course EXECUTIVE CYBER LEADER/PA Physician Supervision For this patient encounter, I reviewed the EXECUTIVE CYBER LEADER or PA documentation, treatment plan, and medical decision making; and I had [id number] time with this patient. <Imtiaz Cage MD - Last Filed: 04/22/25 17:29> Vital Signs Vital signs: Vital Signs Temperature 97.9 F 04/22/25 14:13 Pulse Rate 116 H 04/22/25 14:13 Respiratory Rate 18 04/22/25 14:13 Blood Pressure 130/88 04/22/25 14:13 Pulse Oximetry 97 04/22/25 14:13 Oxygen Delivery Room Air 04/22/25 14:13 Temperature 97.9 F 04/22/25 14:13 Pulse Rate 116 H 04/22/25 14:13 Respiratory Rate 18 04/22/25 14:13 Blood Pressure 130/88 04/22/25 14:13 Pulse Oximetry 97 04/22/25 14:13 Oxygen Delivery Room Air 04/22/25 14:13 <Rodrigo Menjivar APRN - Last Filed: 04/22/25 16:54> Vital Signs Temperature 97.9 F 04/22/25 14:13 Pulse Rate 116 H 04/22/25 14:13 Respiratory Rate 18 04/22/25 14:13 Blood Pressure 130/88 04/22/25 14:13 Pulse Oximetry 97 04/22/25 14:13 Oxygen Delivery Room Air 04/22/25 14:13 Temperature 97.9 F 04/22/25 14:13 Pulse Rate 116 H 04/22/25 14:13 Respiratory Rate 18 04/22/25 14:13 Blood Pressure 130/88 04/22/25 14:13 Pulse Oximetry 97 04/22/25 14:13 Oxygen Delivery Room Air 04/22/25 14:13 <Imtiaz Cage MD - Last Filed: 04/22/25 17:29> MDM - Alcohol MDM Narrative Medical decision making narrative: 30 y/o WM to the ED via EMS w/ ETOH intoxication and s/p fall. Per EMS and RN, pt found in the grass by bystander, EMS/Police contacted. Pt brought to ED for further care. Unknown LOC, unknown level of fall. PLastic OJ bottle and broken vodka bottle found near the pt. Pt states drinking a pint of Vodka usually when he drinks, thinks he fell, but isn't sure where or when. Pt states he drinks 3-5 days a week. Denies sz or DTs when not drinking. Pt denies any pain at this time. When asked if he has anyone to pick him up he stated no. Denies CP/SOB, N/V/D, abd pain, neck pain, BRAVO, dizziness. Labs be drawn. Patient will be given IV fluids and banana bag in the emergency room to assist with detox. Will administer antiemetics and benzos if required but at this time is not necessary. CT head face and neck all ordered to rule out any traumatic injury, due to fall and patient being a poor historian. Patient requesting but go home, explained that we would be unable to help him with that due to his intoxication. Asked if patient has someone to pick him up and he stated now. Explained to patient that labs and imaging would need to be obtained, once he was sober we would release him of his own recognizance. Patient set up becoming aggressive with staff, pulling his IV out. Patient requesting to leave. Explained to patient that due to intoxication we would need him to sober up further. ETOH level 419 her lab, CIWA 11. Patient calmed, called his friend [facility] stating that he will be coming to pick him up and assume care. Patient from [facility] arrived assumed care of the patient. Patient left with commissioned security officer. <Rodrigo Menjivar TEACHER EMOTIONALLY IMPAIRED - Last Filed: 04/22/25 16:54> Differential Diagnosis Differential diagnosis: Likely alcohol withdrawal delirium, alcohol intoxication and alcohol withdrawal syndrome <Rodrigo Menjivar TEACHER EMOTIONALLY IMPAIRED - Last Filed: 04/22/25 16:54> Medical Records Attestation: I reviewed the patient's medical records. <Rodrigo Menjivar APRN - Last Filed: 04/22/25 16:54> Lab Data Attestation: I reviewed the patient's lab results. <Rodrigo Menjivar, TEACHER EMOTIONALLY IMPAIRED - Last Filed: 04/22/25 16:54> Result diagrams: 04/22/25 15:11 04/22/25 15:11 <Rodrigo Menjivar TEACHER EMOTIONALLY IMPAIRED - Last Filed: 04/22/25 16:54> Labs: Lab Results 04/22/25 Range/Units 15:11 WBC 7.5 (4.5-10.0) K/mm3 RBC 4.77 (4.6-6.20) M/mm3 Hgb 14.9 (14.0-18.0) g/dL Hct 44.3 (42.0-52.0) % MCV 92.9 (80-100) fl MCH 31.2 (26-34) pg MCHC 33.6 (32-36) g/dl RDW 13.0 (11.5-14.5) % Plt Count 221 (150-375) k/mm3 MPV 9.6 (7.4-10.4) fl Immature Gran % (Auto) 0.4 (0-0.5) % Neut % (Auto) 53.4 (45.5-73.1) % Lymph % (Auto) 38.1 (18.3-44.2) % [place] % (Auto) 5.5 (2.6-8.5) % Eos % (Auto) 1.1 (0-4.4) % Baso % (Auto) 1.5 H (0.2-1.2) % Lymph # (Auto) 2.84 (0.9-3.2) K/mm3 [place] # (Auto) 0.4 (0.1-0.6) K/mm3 Eos # (Auto) 0.1 (0-0.3) K/mm3 Baso # (Auto) 0.1 (0.0-0.1) K/mm3 Abs Immat Gran (auto) 0.03 (0.00-0.031) K/mm3 Absolute Neuts (auto) 4.0 (1.3-6.7) K/mm3 Absolute Nucleated RBC 0.000 (0.0-0.012) K/mm3 Nucleated RBC % 0.0 (0.0-0.2) % Sodium 142 (137-145) mmol/L Potassium 4.1 (3.4-5.0) mmol/L Chloride 104 (98-107) mmol/L Carbon Dioxide 25 (22-30) mmol/L Anion Gap 13 H (4-12) mmol/L BUN 9 (9-20) mg/dL Creatinine 0.91 (0.7-1.3) mg/dL Estim Creat Clear Calc 93 ml/min Estimated GFR > 60 (59 - ) Glucose 93 (65-110) mg/dL Calcium 9.0 (8.4-10.2) mg/dL Total Bilirubin 0.3 (0.2-1.3) mg/dL AST 30 (17-59) U/L ALT 30 (6-50) U/L Alkaline Phosphatase 60 (38-126) U/L Total Protein 8.4 H (6.3-8.2) g/dL Albumin 4.9 (3.5-5.1) g/dL Ethyl Alcohol 418 H* (<10) mg/dL <Rodrigo Menjivar, TEACHER EMOTIONALLY IMPAIRED - Last Filed: 04/22/25 16:54> Lab Results 04/22/25 Range/Units 15:11 WBC 7.5 (4.5-10.0) K/mm3 RBC 4.77 (4.6-6.20) M/mm3 Hgb 14.9 (14.0-18.0) g/dL Hct 44.3 (42.0-52.0) % MCV 92.9 (80-100) fl MCH 31.2 (26-34) pg MCHC 33.6 (32-36) g/dl RDW 13.0 (11.5-14.5) % Plt Count 221 (150-375) k/mm3 MPV 9.6 (7.4-10.4) fl Immature Gran % (Auto) 0.4 (0-0.5) % Neut % (Auto) 53.4 (45.5-73.1) % Lymph % (Auto) 38.1 (18.3-44.2) % [place] % (Auto) 5.5 (2.6-8.5) % Eos % (Auto) 1.1 (0-4.4) % Baso % (Auto) 1.5 H (0.2-1.2) % Lymph # (Auto) 2.84 (0.9-3.2) K/mm3 [place] # (Auto) 0.4 (0.1-0.6) K/mm3 Eos # (Auto) 0.1 (0-0.3) K/mm3 Baso # (Auto) 0.1 (0.0-0.1) K/mm3 Abs Immat Gran (auto) 0.03 (0.00-0.031) K/mm3 Absolute Neuts (auto) 4.0 (1.3-6.7) K/mm3 Absolute Nucleated RBC 0.000 (0.0-0.012) K/mm3 Nucleated RBC % 0.0 (0.0-0.2) % Sodium 142 (137-145) mmol/L Potassium 4.1 (3.4-5.0) mmol/L Chloride 104 (98-107) mmol/L Carbon Dioxide 25 (22-30) mmol/L Anion Gap 13 H (4-12) mmol/L BUN 9 (9-20) mg/dL Creatinine 0.91 (0.7-1.3) mg/dL Estim Creat Clear Calc 93 ml/min Estimated GFR > 60 (59 - ) Glucose 93 (65-110) mg/dL Calcium 9.0 (8.4-10.2) mg/dL Total Bilirubin 0.3 (0.2-1.3) mg/dL AST 30 (17-59) U/L ALT 30 (6-50) U/L Alkaline Phosphatase 60 (38-126) U/L Total Protein 8.4 H (6.3-8.2) g/dL Albumin 4.9 (3.5-5.1) g/dL Ethyl Alcohol 418 H* (<10) mg/dL <Imtiaz Cage MD - Last Filed: 04/22/25 17:29> Imaging Data Radiologist's impression: ITS Impressions Head CT 04/22/25 15:03 IMPRESSION: No acute intracranial process. Aerated secretions in the right posterior ethmoid sinus may represent acute sinusitis or minor mucosal hemorrhage in the setting of trauma. Head/Cervical Spine/Facial Bones CT 04/22/25 15:24 Impression: Straightening and slight reversal of the normal curvature of the cervical spine, likely muscular in origin. No acute fracture within the cervical spine or facial bones. ITS Impressions Head CT 04/22/25 15:03 IMPRESSION: No acute intracranial process. Aerated secretions in the right posterior ethmoid sinus may represent acute sinusitis or minor mucosal hemorrhage in the setting of trauma. Head/Cervical Spine/Facial Bones CT 04/22/25 15:24 Impression: Straightening and slight reversal of the normal curvature of the cervical spine, likely muscular in origin. No acute fracture within the cervical spine or facial bones. <Rodrigo Menjivar, TEACHER EMOTIONALLY IMPAIRED - Last Filed: 04/22/25 16:54> ITS Impressions Head CT 04/22/25 15:03 IMPRESSION: No acute intracranial process. Aerated secretions in the right posterior ethmoid sinus may represent acute sinusitis or minor mucosal hemorrhage in the setting of trauma. Head/Cervical Spine/Facial Bones CT 04/22/25 15:24 Impression: Straightening and slight reversal of the normal curvature of the cervical spine, likely muscular in origin. No acute fracture within the cervical spine or facial bones. <Imtiaz Cage MD - Last Filed: 04/22/25 17:29> Discharge Plan Discharge Clinical Impression: Alcoholic intoxication Qualifiers: Complication of substance-induced condition: uncomplicated Qualified Code(s): F10.920 - Alcohol use, unspecified with intoxication, uncomplicated <Rodrigo Menjivar APRN - Last Filed: 04/22/25 16:54> Patient Disposition: Home <Rodrigo Menjivar APRN - Last Filed: 04/22/25 16:54> Condition: Stable <Rodrigo Menjivar APRN - Last Filed: 04/22/25 16:54> Instructions: Antibiotic Form, Alcohol Intoxication (ED), Abuse of Alcohol (ED) <Rodrigo Menjivar APRN - Last Filed: 04/22/25 16:54> Additional Instructions: Please return to the ER with any worsening symptoms. ?Follow-up with primary care provider as soon as possible. ?Take all medications as prescribed, including regularly scheduled medications. <Rodrigo Menjivar APRN - Last Filed: 04/22/25 16:54> Patient Language: Hebrew <Rodrigo Menjivar APRN - Last Filed: 04/22/25 16:54> Prescriptions: No Action No Home Medications <Rodrigo Menjivar APRN - Last Filed: 04/22/25 16:54> Follow-up/Referrals: Stacie Hale DO [Primary Care Provider] - <Rodrigo Menjivar APRN - Last Filed: 04/22/25 16:54>
[2025-04-22] MEDS: SODIUM CHLORIDE 0.9% IV 1,000 ML 999 ML IV CONT (15:09)
[2025-04-22 15:17] LABS: Hematocrit 44.3 % (42.0-52.0); Hemoglobin 14.9 g/dL (14.0-18.0); Immature Granulocyte Percent A 0.4 % (0-0.5); Lymphocytes Absolute Auto 2.84 K/mm3 (0.9-3.2); Mean Corpuscular HGB Conc 33.6 g/dl (32-36); Mean Corpuscular Hemoglobin 31.2 pg (26-34); Mean Corpuscular Volume 92.9 fl (80-100); Nucleated Red Blood Cells Absolute Auto 0.000 K/mm3 (0.0-0.012); Nucleated Red Blood Cells Perc 0.0 % (0.0-0.2); Platelet Count Result 221 k/mm3 (150-375); Red Blood Count 4.77 M/mm3 (4.6-6.20); White Blood Count 7.5 K/mm3 (4.5-10.0)
--- NOTE | 2025-04-22 15:23 | PC.NURSE ---
EDP and security called to bedside due to patient screaming at staff members aggressively and getting out of bed after being educated that it's an increased risk of falls and patient is safer in the bed while he's getting fluids infused and is attached to the monitor. patient continued to yell about staff being stupid patient was found up pacing around the room and ripped his iv tubing to where fluids and blood were dripping on the floor. patient yelling at staff and cussing. security at bedside. iv removed, patient cleaned up and pressure dressing placed.
[2025-04-22 15:27] LABS: Alanine Aminotransferase 30 U/L (6-50); Albumin Level 4.9 g/dL (3.5-5.1); Alkaline Phosphatase 60 U/L (38-126); Anion Gap 13 mmol/L (4-12); Aspartate Amino Transferase 30 U/L (17-59); Bilirubin,Total 0.3 mg/dL (0.2-1.3); Blood Urea Nitrogen 9 mg/dL (9-20); Calcium 9.0 mg/dL (8.4-10.2); Carbon Dioxide 25 mmol/L (22-30); Chloride 104 mmol/L (98-107); Estimated CRCL calculation 93 ml/min; Estimated Glomerular Filt Rate > 60; Glucose 93 mg/dL (65-110); Potassium 4.1 mmol/L (3.4-5.0); Sodium 142 mmol/L (137-145); Total Protein 8.4 g/dL (6.3-8.2)
--- NOTE | 2025-04-22 15:35 | PC.NURSE ---
Pt is yelling, aggressive behavior, wanting to leave. Pt is still confuse and intoxicated. Pt pulled his IV, refused fluids and care. Security called. EDP present.
--- NOTE | 2025-04-22 16:40 | PC.NURSE ---
Pt's friend here to pick him up.
== END 2025-04-22 18:29 | disposition home or self-care (01) ==
PROVIDERS: Emergency Provider Registered Nurse Emergency; PCP Family Medicine
DX: F10.920 Alcohol use, unspecified with intoxication, uncomplicated (principal); S01.511A Laceration without foreign body of lip, initial encounter; S61.412A Laceration without foreign body of left hand, initial encounter; W19.XXXA Unspecified fall, initial encounter; F17.210 Nicotine dependence, cigarettes, uncomplicated; Y90.8 Blood alcohol level of 240 mg/100 ml or more
CPT/HCPCS: 36415; 70450; 70486; 72125; 80053; 82077; 85025; 96360; 99284; J7030